=== PATIENT | male | born 1960 | race African-American/Black ===

== ENCOUNTER 2020-01-03 16:18 | Inpatient (IN) | payer MEDICARE ==
[2020-01-03] MEDS ORDERED: guaiFENesin 200 MG/10 ML UDC PO PRN (23:02)
[2020-01-03] MEDS ORDERED: Maalox 30 mL Cup PO PRN (23:02)
[2020-01-04 00:35] VITALS: BP 141/81
[2020-01-04] MEDS ORDERED: Magnesium Hydroxide (MOM) 30 mL UDC PO PRN (00:49)
[2020-01-04] MEDS ORDERED: GLUCAGON HCl 1 MG KIT IM PRN (06:55)
[2020-01-04] MEDS: INSULIN LISPRO SLIDING SCALE 100 UNITS/ML UNIT SUBQ SCH ×4 (07:30→21:45)
[2020-01-04] MEDS: Multivitamin Tab PO SCH (09:02)
--- NOTE | 2020-01-04 15:18 | Consultation ---
DATE OF CONSULTATION: 01/04/2020 REASON FOR CONSULTATION: Medical management and clearance. HISTORY OF PRESENT ILLNESS: This is a 59-year-old male with history of diabetes, chronic liver disease and schizoaffective disorder, admitted initially at [facility] secondary to change in mental status. The patient was diagnosed with ____. The patient was also treated for pneumonia, possibly secondary to aspiration. The patient was transferred for continued care and treatment. PAST MEDICAL HISTORY: As mentioned in history of present illness. PAST SURGICAL HISTORY: No surgeries in the past. ALLERGIES: No known drug allergies. MEDICATIONS: [place], risperidone, aripiprazole, tamsulosin. FAMILY HISTORY: Denies diabetes or coronary artery disease. SOCIAL HISTORY: The patient did smoke and drink in the past. The patient lives in a nursing facility. REVIEW OF SYSTEMS: This is limited secondary to ____. We will try to obtain more detailed review of systems at a later date by talking to family members. There is a conservator, Beatrice Ross, . We will also try to get information from nursing staff at [facility]. PHYSICAL EXAMINATION: VITAL SIGNS: Blood pressure 157/89, respiration 19, pulse 94, temperature 98.0. GENERAL: Elderly male, chronically ill. NECK: Supple. No mass. LUNGS: Equal breath sounds, otherwise clear to auscultation. HEART: Regular rate and rhythm without appreciable murmur. ABDOMEN: Soft, globular. EXTREMITIES: Positive ecchymosis in bilateral antecubital area. NEUROLOGIC: Limited, moving 4 extremities, unable to perform cranial nerves. Cranial nerve 1, this was offered, but patient is refused. Cranial nerve 2, this was offered, but patient is refused. Cranial nerve 3, this was offered, but patient is refused. Cranial nerve 4, this was offered, but patient is refused. Cranial nerve 5, this was offered, but patient is refused. Cranial nerve 6, this was offered, but patient is refused. Cranial nerve 7, this was offered, but patient is refused. Cranial nerve 8, this was offered, but patient is refused. Cranial nerve 9, this was offered, but patient is refused. Cranial nerve 10, this was offered, but patient is refused. Cranial nerve 11, this was offered, but patient is refused. Cranial nerve 12, this was offered, but patient is refused. Motor and sensory were equal. Gait not seen. LABORATORY DATA: Still pending. ASSESSMENT AND PLAN: ____ recent pneumonia, diabetes, chronic liver disease, schizoaffective disorder, hypertension. We will titrate the patient's antihypertensive medication. Continue on clonidine on as needed basis. If remains elevated. We will start on current antihypertensive medication. Continue on Flomax. We will compare with Psychiatry as far as alternative for lithium. We will continue to monitor the patient closely with you, Dr. Santizo. JOB# [id number]
[2020-01-04] MEDS ORDERED: Haloperidol Lactate 5 mg/mL 1mL Vial IM PRN (18:38)
[2020-01-04] MEDS ORDERED: Haloperidol Lactate 5 mg/mL 1mL Vial ONE (18:45)
[2020-01-04] MEDS ORDERED: Haloperidol Lactate 5 mg/mL 1mL Vial IM ONE (18:58)
--- NOTE | 2020-01-04 23:23 | Psychiatric Evaluation ---
DATE OF SERVICE: 01/04/2020 JUSTIFICATION FOR HOSPITALIZATION: Aggressive behaviors, agitation, psychotic symptoms. HISTORY OF PRESENT ILLNESS: A 59-year-old male conserved, coming from [facility] on a hold, agitated, aggressive, needing restraints, yelling, talking to people that are not there, loud, making nonsensical comments, disoriented, in a Anu chair now, very restless, yelling, screaming. PAST PSYCHIATRIC HISTORY: Appears to be a chronic, paranoid, schizophrenic, conserved, history of hospitalizations. FAMILY HISTORY: Unclear. SOCIAL HISTORY: Living in [facility]. MEDICATIONS: Reviewed. MEDICAL HISTORY: Please see full H and P, Dr. Benson is the doctor. MENTAL STATUS EXAMINATION: Disheveled, unkempt, poor dentition, loud, screaming, yelling, not answering really any questions, disoriented, disorganized, no SI, no HI, talking to people that are not there. Poor insight. PROVISIONAL DIAGNOSIS: Schizophrenia. ESTIMATED LENGTH OF STAY: 7-10 days. ASSESSMENT: 1. The patient requiring hospitalization, psychotic, aggressive, combative, unable to be cared for at a lower level. 2. Medications were reviewed. We will make appropriate medication adjustments, example initiate Zyprexa. CONDITIONS FOR DISCHARGE: Improved mood, improved affect, better control of his psychotic state, aggressive state. [facility]# [id number]
[2020-01-05] MEDS: INSULIN LISPRO SLIDING SCALE 100 UNITS/ML UNIT SUBQ SCH ×4 (07:04→20:45)
[2020-01-05] MEDS: Multivitamin Tab PO SCH (08:29)
[2020-01-05] MEDS ORDERED: Haloperidol Lactate 5 mg/mL 1mL Vial ONE (11:00)
--- NOTE | 2020-01-05 12:35 | Progress Notes ---
DATE: 01/05/2020 SUBJECTIVE: The patient remains unruly, agitated, bizarre in a Anu chair, yelling, screaming and talking nonsense. Patient required emergency medications dosing of Haldol last night, agitation. Psychotically driven agitation. Seems to have responded well to the Haldol dosing. Time was spent speaking with nursing staff, discussion with the patient through attempted discussions with the patients. Vitals were noted. Medications were noted and the nursing notes were reviewed. The patient remains unstable, unruly. We will switch him over to Haldol b.i.d. His hold may be expiring, we will extend to a 14-day. JOB# [id number]
--- NOTE | 2020-01-05 13:16 | Internal Medicine Prog Note ---
Internal Medicine Subjective - Subjective Patient seen and examined:: with staff, chart reviewed Patient is:: awake, verbal, interactive, agitated, confused Per staff patient has:: no adverse event, no episodes of fall, combative, tolerating meds Internal Medicine Objective - Results Recent Labs: Laboratory Last Values POC Glucose 266 MG/DL (70 - 105) H 01/05/20 11:37 - Physical Exam Vitals and I&O: Vital Signs Temp 97.3 F 01/05/20 06:06 Pulse 96 01/05/20 06:06 Resp 20 01/05/20 08:00 BP 155/82 01/05/20 06:06 Pulse Ox 100 01/05/20 06:06 Intake & Output 01/04/20 01/05/20 01/05/20 18:59 06:59 18:59 Intake Total 240 Balance 240 Intake: Oral 240 Other: # Voids 1 2 # Bowel Movements 0 0 Active Medications: Current Medications Acetaminophen (Tylenol) 650 mg PO Q4H PRN PRN Reason: Pain (Mild 1-3) Stop: 03/03/20 23:01 Al Hydrox/Mg Hydrox/Simethicone (Maalox) 30 ml PO Q6H PRN PRN Reason: Dyspepsia Stop: 03/03/20 23:01 Lipase/Protease/Amylase (Zenpep 5,000 U) 1 cap PO TIDWM [facility] Stop: 03/04/20 11:59 Last Admin: 01/05/20 12:02 Dose: 1 cap Dextrose (Glutose 40%) 18.75 gm PO PRN PRN PRN Reason: BS Below 70 if tolerate po Stop: 03/04/20 06:54 Diphenhydramine HCl (Benadryl) 25 mg PO BID [facility] Stop: 03/05/20 16:59 Glucagon (Glucagen) 1 mg IM PRN PRN PRN Reason: BS Below 70 if not tolerate po Stop: 03/04/20 06:54 Guaifenesin (Robitussin) 200 mg PO Q4HR PRN PRN Reason: Cough or Congestion Stop: 03/03/20 23:01 Haloperidol (Haldol) 5 mg PO BID [facility]; Protocol Stop: 03/05/20 16:59 Insulin Human Lispro (Humalog Insulin Sliding Scale) 0 units SUBQ [facility]; Protocol Stop: 03/04/20 07:29 Last Admin: 01/05/20 11:35 Dose: 4 units Lorazepam (Ativan) 1 mg PO Q6HR PRN; Protocol PRN Reason: Anxiety Stop: 02/03/20 00:48 Last Admin: 01/05/20 08:29 Dose: 1 mg Magnesium Hydroxide (Milk Of Magnesia) 30 ml PO HS PRN PRN Reason: Constipation Multivitamins/Vitamin C (Theragran) 1 tab PO DAILY [facility]EN Stop: 03/04/20 08:59 Last Admin: 01/05/20 08:29 Dose: 1 tab Ondansetron HCl (Zofran Odt) 4 mg PO Q6H PRN PRN Reason: Nausea / Vomiting Stop: 03/03/20 23:03 Tamsulosin HCl (Flomax) 0.4 mg PO HS WEN Stop: 03/04/20 20:59 Last Admin: 01/04/20 21:45 Dose: 0.4 mg Zolpidem Tartrate (Ambien) 5 mg PO HS PRN PRN Reason: Insomnia Stop: 03/04/20 00:48 Last Admin: 01/04/20 21:45 Dose: 5 mg General: demented, disheveled, appears older HEENT: NC/AT, PERRLA Neck: Supple, No JVD Lungs: CTAB Cardiovascular: RRR, Normal S1, Normal S2 Abdomen: soft, non-tender, positive bowel sound Extremities: excoriation Neurological: no change Internal Medicine Assmt/Plan - Assessment Assessment: ASSESSMENT AND PLAN: __h/o__ recent pneumonia, diabetes, chronic liver disease, schizoaffective disorder, hypertension. We will titrate the patient's antihypertensive medication. - Plan Plan: PLAN: . We will titrate the patient's antihypertensive medication. Continue on clonidine on as needed basis. If remains elevated. We will start on current antihypertensive medication. Continue on Flomax. We will compare with Psychiatry as far as alternative for lithium. We will continue to monitor the patient closely with you, Dr. Santizo.
[2020-01-06] MEDS: INSULIN LISPRO SLIDING SCALE 100 UNITS/ML UNIT SUBQ SCH ×4 (06:37→21:04)
[2020-01-06] MEDS: Multivitamin Tab PO SCH (08:26)
--- NOTE | 2020-01-06 15:37 | Internal Medicine Prog Note ---
Internal Medicine Subjective - Subjective Patient seen and examined:: with staff, chart reviewed Patient is:: awake, verbal, interactive, agitated, confused Per staff patient has:: no adverse event, no episodes of fall, combative, tolerating meds Internal Medicine Objective - Results Recent Labs: Laboratory Last Values POC Glucose 346 MG/DL (70 - 105) H 01/06/20 11:13 - Physical Exam Vitals and I&O: Vital Signs Temp 97.1 F 01/06/20 14:00 Pulse 83 01/06/20 14:00 Resp 20 01/06/20 14:00 BP 150/77 01/06/20 14:00 Pulse Ox 98 01/06/20 14:00 Intake & Output 01/05/20 01/06/20 01/06/20 18:59 06:59 18:59 Intake Total 800 120 120 Balance 800 120 120 Intake: Oral 800 120 120 Other: # Voids 3 2 2 # Bowel Movements 0 0 1 Active Medications: Current Medications Acetaminophen (Tylenol) 650 mg PO Q4H PRN PRN Reason: Pain (Mild 1-3) Stop: 03/03/20 23:01 Last Admin: 01/06/20 14:11 Dose: 650 mg Al Hydrox/Mg Hydrox/Simethicone (Maalox) 30 ml PO Q6H PRN PRN Reason: Dyspepsia Stop: 03/03/20 23:01 Lipase/Protease/Amylase (Zenpep 5,000 U) 1 cap PO TIDWM [facility] Stop: 03/04/20 11:59 Last Admin: 01/06/20 12:00 Dose: 1 cap Dextrose (Glutose 40%) 18.75 gm PO PRN PRN PRN Reason: BS Below 70 if tolerate po Stop: 03/04/20 06:54 Diphenhydramine HCl (Benadryl) 25 mg PO BID [facility] Stop: 03/05/20 16:59 Last Admin: 01/06/20 08:26 Dose: 25 mg Glipizide (Glucotrol) 5 mg PO BID [facility] Stop: 03/06/20 16:59 Glucagon (Glucagen) 1 mg IM PRN PRN PRN Reason: BS Below 70 if not tolerate po Stop: 03/04/20 06:54 Guaifenesin (Robitussin) 200 mg PO Q4HR PRN PRN Reason: Cough or Congestion Stop: 03/03/20 23:01 Haloperidol (Haldol) 5 mg PO BID [facility]; Protocol Stop: 03/05/20 16:59 Last Admin: 01/06/20 08:26 Dose: 5 mg Insulin Human Lispro (Humalog Insulin Sliding Scale) 0 units SUBQ [facility]; Protocol Stop: 03/04/20 07:29 Last Admin: 01/06/20 11:35 Dose: 6 units Lorazepam (Ativan) 1 mg PO Q6HR PRN; Protocol PRN Reason: Anxiety Stop: 02/03/20 00:48 Last Admin: 01/06/20 14:07 Dose: 1 mg Magnesium Hydroxide (Milk Of Magnesia) 30 ml PO HS PRN PRN Reason: Constipation Multivitamins/Vitamin C (Theragran) 1 tab PO DAILY WEN Stop: 03/04/20 08:59 Last Admin: 01/06/20 08:26 Dose: 1 tab Ondansetron HCl (Zofran Odt) 4 mg PO Q6H PRN PRN Reason: Nausea / Vomiting Stop: 03/03/20 23:03 Tamsulosin HCl (Flomax) 0.4 mg PO HS WEN Stop: 03/04/20 20:59 Last Admin: 01/05/20 20:46 Dose: 0.4 mg Zolpidem Tartrate (Ambien) 5 mg PO HS PRN PRN Reason: Insomnia Stop: 03/04/20 00:48 Last Admin: 01/05/20 22:41 Dose: 5 mg General: demented, disheveled, appears older HEENT: NC/AT, PERRLA Neck: Supple, No JVD Lungs: CTAB Cardiovascular: RRR, Normal S1, Normal S2 Abdomen: soft, non-tender, positive bowel sound Extremities: excoriation Neurological: no change Internal Medicine Assmt/Plan - Assessment Assessment: ASSESSMENT AND PLAN: __h/o__ recent pneumonia, diabetes, chronic liver disease, schizoaffective disorder, hypertension. We will titrate the patient's antihypertensive medication. - Plan Plan: PLAN: . We will titrate the patient's antihypertensive medication. Continue on clonidine on as needed basis. If remains elevated. We will start on current antihypertensive medication. Continue on Flomax. We will compare with Psychiatry as far as alternative for lithium. start on glipizide rosaura rn Nutritional Asmnt/Malnutr-PDOC - Dietary Evaluation Malnutrition Findings (Please click <Entered> for more info): Nutritional Asmnt/Malnutrition Start: 01/06/20 13: 18 Text: Status: Complete Freq: Protocol: Document 01/06/20 13:18 PB (Rec: 01/06/20 13:25 PB [email or web address]) Nutritional Asmnt/Malnutrition Patient General Information Nutritional Screening Moderate Risk Diagnosis Psychosis Pertinent Medical Hx/Surgical Hx Diabetes, chronic liver disease, and schizoaffective disorder Subjective Information Pt is a 59-year-old male admitted on 01/02 d/t psychosis. Pt is eating an estimated 100% of meals Per Meal/Nutrition Activity Record . Dietary is currently providing an estimated 1593 kcals and 95 gm Pro (x2 days), per Pt PO intake this is providing an estimated 1593 kcals and 95gm Pro to meet 94% kcal and 100+% Pro needs. Visited pt. after lunch and introduced myself. Patient seemed confused and did not speak with me. Spoke with pt. nurse Kandis concerning high glucose values, she stated, she made MD aware and will talk further today when he comes in. Anthropometrics HT: 60 WT: 147 LB (66.82 kg) BMI: 19.94 (Normal) GI/ Skin Integrity GI: WNL, Soft, Non-Tender BM: 01/05 x1 I/O: 920/Not Noted Skin: WNL, Intact Ruben: 18 Diet Order: Cardiac, CCHO 60 gm Estimated Energy Needs: ( Chronic Liver Disease, CBW) 8217-8070 kcals (25-30 kcals/ kg) 80-100g Pro (1.2-1.5 g/kg) 5599-0355 ml (25-30 ml/kg) Current Diet Order/ Nutrition Support Cardiac, CCHO 60 gm Pertinent Medications Maalox, Zenpep 5,000 U, Glutose 40% (PRN), Glucagen ( PRN), Humalog, MOM (PRN), Theragran, Zodfran Odt (PRN), Flomax Pertinent Labs 01/05: POC Glucose (past 24 hrs ) 346, 244 01/03: Albumin 3.1, Alk Phos 210, BUN 6, Glucose 266 12/30: Glucose 327, Chloride 118 , Albumin 2.7, Alk Phos 218, Total Pro 5.8 12/28: POC Glucose 407, 439 Nutritional Hx/Data Height 1.83 m Height (Calculated Centimeters) 182.9 Current Weight (lbs) 66.678 kg Weight (Calculated Kilograms) 66.7 Weight (Calculated Grams) 24834.1 [place] Body Weight 178 % [place] Body Weight 83 Body Mass Index (BMI) 19.9 Weight Status Approriate GI Symptoms GI Symptoms None Last BM 01/05 Skin Integrity/Comment: Skin: WNL, Intact Ruben: 18 Current %PO Good (75-100%) Estimated Nutritional Goals BEE in Kcals: Using Current wt Calories/Kcals/Kg 25-30 Kcals Calculated 8241-1767 Protein: Using Current wt Protein g/k.2-1.5 Protein Calculated 80-100 Fluid: ml 6667-9205 Nutritional Problem 2. Problem Problem Increased protein needs Etiology r/t liver dysfunction Signs/Symptoms: aeb history of chronic liver disease 1. Problem Problem Altered nutrition related labs Etiology r/t endocrine dysfunction Signs/Symptoms: aeb POC Glucose (last 24 hrs.) 346, 244 Malnutrition Related to Morbid Obesity Malnutrition related to morbid obesity No Intervention/Recommendation Comments 1. Continue cardiac, CCHO 60 gm diet as tolerated. 2. Continue antihyperglycemic medications for glucose control per MD order. 3. Increased protein needs to 1.2-1.5 g/kg Expected Outcomes/Goals Expected Outcomes/Goals 1. PO intake to continue to meet >75% of estimated nutritional needs. 2. Monitor PO intake, wt, nutrition related labs, and skin integrity to trend WNL. 3. F/U as moderate risk in 3-5 days, 01/10-01/12
--- NOTE | 2020-01-06 16:06 | Progress Notes ---
DATE: 01/06/2020 SUBJECTIVE: A 59-year-old male, currently in the hospital, still loud, aggressive at times, yelling and screaming, disorganized, not making any sense, ongoing psychotic symptoms, bizarre, disheveled, unkempt, staff noting he is mildly calmer, taking the Haldol. He seems to be responding somewhat to treatment, still unruly, difficult to follow his thought processes. Time was spent speaking with the patient, striking with the staff. Review of the medical records and chart. Medication evaluation for any medication side effects. PLAN: We will continue to monitor closely. Continue dosing of Haldol. Consider dose titration. JOB# [id number]
[2020-01-07] MEDS: INSULIN LISPRO SLIDING SCALE 100 UNITS/ML UNIT SUBQ SCH ×4 (07:12→21:27)
--- NOTE | 2020-01-07 07:18 | Progress Notes ---
DATE: 01/07/2020 SUBJECTIVE: The patient slept for about 5 hours, disheveled, garbled speech, paranoid, anxious, disorganized, talking to self, mumbling to self, hostile towards staff, trying to hit staff, very confused, not making much sense. Currently on dosing of Haldol 5 mg 3 times a day. He may need a higher dose in fact. Time was spent reviewing the medical records, attempting to speak with the patient, although he really is not making much sense. Nursing notes were reviewed. Vitals reviewed. Any recent labs reviewed. PLAN: We will continue to monitor. Consider continued dose titration of Haldol. JOB# [id number]
[2020-01-07] MEDS: Multivitamin Tab PO SCH (09:08)
--- NOTE | 2020-01-07 23:31 | Internal Medicine Prog Note ---
Internal Medicine Subjective - Subjective Patient seen and examined:: with staff, chart reviewed Patient is:: awake, verbal, interactive, agitated, confused Per staff patient has:: no adverse event, no episodes of fall, combative, tolerating meds Internal Medicine Objective - Results Recent Labs: Laboratory Last Values POC Glucose 120 MG/DL (70 - 105) H 01/07/20 21:16 - Physical Exam Vitals and I&O: Vital Signs Temp 97.8 F 01/07/20 20:35 Pulse 78 01/07/20 20:35 Resp 18 01/07/20 20:35 BP 136/74 01/07/20 20:35 Pulse Ox 98 01/07/20 20:35 Intake & Output 01/07/20 01/07/20 01/08/20 06:59 18:59 06:59 Intake Total 300 1200 120 Output Total 1 Balance 299 1200 120 Intake: Oral 300 1200 120 Output: Urine/Stool Mix 1 Other: # Voids 2 2 # Bowel Movements 1 1 0 Active Medications: Current Medications Acetaminophen (Tylenol) 650 mg PO Q4H PRN PRN Reason: Pain (Mild 1-3) Stop: 03/03/20 23:01 Last Admin: 01/06/20 14:11 Dose: 650 mg Al Hydrox/Mg Hydrox/Simethicone (Maalox) 30 ml PO Q6H PRN PRN Reason: Dyspepsia Stop: 03/03/20 23:01 Lipase/Protease/Amylase (Zenpep 5,000 U) 1 cap PO TIDWM [facility] Stop: 03/04/20 11:59 Last Admin: 01/07/20 16:54 Dose: 1 cap Dextrose (Glutose 40%) 18.75 gm PO PRN PRN PRN Reason: BS Below 70 if tolerate po Stop: 03/04/20 06:54 Diphenhydramine HCl (Benadryl) 25 mg PO BID [facility] Stop: 03/05/20 16:59 Last Admin: 01/07/20 16:54 Dose: 25 mg Glucagon (Glucagen) 1 mg IM PRN PRN PRN Reason: BS Below 70 if not tolerate po Stop: 03/04/20 06:54 Guaifenesin (Robitussin) 200 mg PO Q4HR PRN PRN Reason: Cough or Congestion Stop: 03/03/20 23:01 Haloperidol (Haldol) 5 mg PO BID [facility]; Protocol Stop: 03/05/20 16:59 Last Admin: 01/07/20 16:54 Dose: 5 mg Insulin Human Lispro (Humalog Insulin Sliding Scale) 0 units SUBQ ACHS [facility]; Protocol Stop: 03/04/20 07:29 Last Admin: 01/07/20 21:27 Dose: 1 units Lorazepam (Ativan) 1 mg PO Q6HR PRN; Protocol PRN Reason: Anxiety Stop: 02/03/20 00:48 Last Admin: 01/07/20 16:54 Dose: 1 mg Magnesium Hydroxide (Milk Of Magnesia) 30 ml PO HS PRN PRN Reason: Constipation Multivitamins/Vitamin C (Theragran) 1 tab PO DAILY [facility] Stop: 03/04/20 08:59 Last Admin: 01/07/20 09:08 Dose: 1 tab Ondansetron HCl (Zofran Odt) 4 mg PO Q6H PRN PRN Reason: Nausea / Vomiting Stop: 03/03/20 23:03 Tamsulosin HCl (Flomax) 0.4 mg PO HS WEN Stop: 03/04/20 20:59 Last Admin: 01/07/20 21:20 Dose: 0.4 mg Zolpidem Tartrate (Ambien) 5 mg PO HS PRN PRN Reason: Insomnia Stop: 03/04/20 00:48 Last Admin: 01/07/20 21:21 Dose: 5 mg General: demented, disheveled, appears older HEENT: NC/AT, PERRLA Neck: Supple, No JVD Lungs: CTAB Cardiovascular: RRR, Normal S1, Normal S2 Abdomen: soft, non-tender, positive bowel sound Extremities: excoriation Neurological: no change Internal Medicine Assmt/Plan - Assessment Assessment: ASSESSMENT AND PLAN: __h/o__ recent pneumonia, diabetes, chronic liver disease, schizoaffective disorder, hypertension. We will titrate the patient's antihypertensive medication. - Plan Plan: PLAN: . We will titrate the patient's antihypertensive medication. Continue on clonidine on as needed basis. If remains elevated. We will start on current antihypertensive medication. Continue on Flomax. We will compare with Psychiatry as far as alternative for lithium. start on glipizide rosaura rn Nutritional Asmnt/Malnutr-PDOC - Dietary Evaluation Malnutrition Findings (Please click <Entered> for more info): Nutritional Asmnt/Malnutrition Start: 01/06/20 13: 18 Text: Status: Complete Freq: Protocol: Document 01/06/20 13:18 PB (Rec: 01/06/20 13:25 PB [email or web address]) Nutritional Asmnt/Malnutrition Patient General Information Nutritional Screening Moderate Risk Diagnosis Psychosis Pertinent Medical Hx/Surgical Hx Diabetes, chronic liver disease, and schizoaffective disorder Subjective Information Pt is a 59-year-old male admitted on 01/02 d/t psychosis. Pt is eating an estimated 100% of meals Per Meal/Nutrition Activity Record . Dietary is currently providing an estimated 1593 kcals and 95 gm Pro (x2 days), per Pt PO intake this is providing an estimated 1593 kcals and 95gm Pro to meet 94% kcal and 100+% Pro needs. Visited pt. after lunch and introduced myself. Patient seemed confused and did not speak with me. Spoke with pt. nurse Kandis concerning high glucose values, she stated, she made MD aware and will talk further today when he comes in. Anthropometrics HT: 60 WT: 147 LB (66.82 kg) BMI: 19.94 (Normal) GI/ Skin Integrity GI: WNL, Soft, Non-Tender BM: 01/05 x1 I/O: 920/Not Noted Skin: WNL, Intact Ruben: 18 Diet Order: Cardiac, CCHO 60 gm Estimated Energy Needs: ( Chronic Liver Disease, CBW) 5992-0406 kcals (25-30 kcals/ kg) 80-100g Pro (1.2-1.5 g/kg) 3572-2316 ml (25-30 ml/kg) Current Diet Order/ Nutrition Support Cardiac, CCHO 60 gm Pertinent Medications Maalox, Zenpep 5,000 U, Glutose 40% (PRN), Glucagen ( PRN), Humalog, MOM (PRN), Theragran, Zodfran Odt (PRN), Flomax Pertinent Labs 01/05: POC Glucose (past 24 hrs ) 346, 244 01/03: Albumin 3.1, Alk Phos 210, BUN 6, Glucose 266 12/30: Glucose 327, Chloride 118 , Albumin 2.7, Alk Phos 218, Total Pro 5.8 12/28: POC Glucose 407, 439 Nutritional Hx/Data Height 1.83 m Height (Calculated Centimeters) 182.9 Current Weight (lbs) 66.678 kg Weight (Calculated Kilograms) 66.7 Weight (Calculated Grams) 52852.1 [place] Body Weight 178 % [place] Body Weight 83 Body Mass Index (BMI) 19.9 Weight Status Approriate GI Symptoms GI Symptoms None Last BM 01/05 Skin Integrity/Comment: Skin: WNL, Intact Ruben: 18 Current %PO Good (75-100%) Estimated Nutritional Goals BEE in Kcals: Using Current wt Calories/Kcals/Kg 25-30 Kcals Calculated 2459-9727 Protein: Using Current wt Protein g/k.2-1.5 Protein Calculated 80-100 Fluid: ml 5116-8062 Nutritional Problem 2. Problem Problem Increased protein needs Etiology r/t liver dysfunction Signs/Symptoms: aeb history of chronic liver disease 1. Problem Problem Altered nutrition related labs Etiology r/t endocrine dysfunction Signs/Symptoms: aeb POC Glucose (last 24 hrs.) 346, 244 Malnutrition Related to Morbid Obesity Malnutrition related to morbid obesity No Intervention/Recommendation Comments 1. Continue cardiac, CCHO 60 gm diet as tolerated. 2. Continue antihyperglycemic medications for glucose control per MD order. 3. Increased protein needs to 1.2-1.5 g/kg Expected Outcomes/Goals Expected Outcomes/Goals 1. PO intake to continue to meet >75% of estimated nutritional needs. 2. Monitor PO intake, wt, nutrition related labs, and skin integrity to trend WNL. 3. F/U as moderate risk in 3-5 days, 01/10-01/12
[2020-01-08] MEDS: INSULIN LISPRO SLIDING SCALE 100 UNITS/ML UNIT SUBQ SCH ×4 (06:59→20:44)
[2020-01-08] MEDS: Multivitamin Tab PO SCH (08:23)
--- NOTE | 2020-01-08 12:55 | Internal Medicine Prog Note ---
Internal Medicine Subjective - Subjective Patient seen and examined:: with staff, chart reviewed Patient is:: awake, verbal, interactive, agitated, confused Per staff patient has:: no adverse event, no episodes of fall, combative, tolerating meds Internal Medicine Objective - Results Recent Labs: Laboratory Last Values POC Glucose 176 MG/DL (70 - 105) H 01/08/20 06:39 - Physical Exam Vitals and I&O: Vital Signs Temp 98.6 F 01/08/20 06:16 Pulse 98 01/08/20 06:16 Resp 19 01/08/20 07:59 BP 142/86 01/08/20 06:16 Pulse Ox 98 01/08/20 06:16 Intake & Output 01/07/20 01/08/20 01/08/20 18:59 06:59 18:59 Intake Total 1200 240 Balance 1200 240 Intake: Oral 1200 240 Other: # Voids 2 # Bowel Movements 1 0 Active Medications: Current Medications Acetaminophen (Tylenol) 650 mg PO Q4H PRN PRN Reason: Pain (Mild 1-3) Stop: 03/03/20 23:01 Last Admin: 01/06/20 14:11 Dose: 650 mg Al Hydrox/Mg Hydrox/Simethicone (Maalox) 30 ml PO Q6H PRN PRN Reason: Dyspepsia Stop: 03/03/20 23:01 Lipase/Protease/Amylase (Zenpep 5,000 U) 1 cap PO TIDWM [facility] Stop: 03/04/20 11:59 Last Admin: 01/08/20 12:03 Dose: 1 cap Dextrose (Glutose 40%) 18.75 gm PO PRN PRN PRN Reason: BS Below 70 if tolerate po Stop: 03/04/20 06:54 Diphenhydramine HCl (Benadryl) 25 mg PO BID [facility] Stop: 03/05/20 16:59 Last Admin: 01/08/20 08:24 Dose: 25 mg Glipizide (Glucotrol) 5 mg PO BIDAC [facility] Stop: 03/06/20 16:29 Last Admin: 01/08/20 06:58 Dose: 5 mg Glucagon (Glucagen) 1 mg IM PRN PRN PRN Reason: BS Below 70 if not tolerate po Stop: 03/04/20 06:54 Guaifenesin (Robitussin) 200 mg PO Q4HR PRN PRN Reason: Cough or Congestion Stop: 03/03/20 23:01 Haloperidol (Haldol) 5 mg PO BID [facility]; Protocol Stop: 03/05/20 16:59 Last Admin: 01/08/20 08:23 Dose: 5 mg Insulin Human Lispro (Humalog Insulin Sliding Scale) 0 units SUBQ ACHS WEN; Protocol Stop: 03/04/20 07:29 Last Admin: 01/08/20 11:40 Dose: 6 units Lorazepam (Ativan) 1 mg PO Q6HR PRN; Protocol PRN Reason: Anxiety Stop: 02/03/20 00:48 Last Admin: 01/08/20 08:24 Dose: 1 mg Magnesium Hydroxide (Milk Of Magnesia) 30 ml PO HS PRN PRN Reason: Constipation Multivitamins/Vitamin C (Theragran) 1 tab PO DAILY [facility] Stop: 03/04/20 08:59 Last Admin: 01/08/20 08:23 Dose: 1 tab Ondansetron HCl (Zofran Odt) 4 mg PO Q6H PRN PRN Reason: Nausea / Vomiting Stop: 03/03/20 23:03 Tamsulosin HCl (Flomax) 0.4 mg PO HS [facility] Stop: 03/04/20 20:59 Last Admin: 01/07/20 21:20 Dose: 0.4 mg Zolpidem Tartrate (Ambien) 5 mg PO HS PRN PRN Reason: Insomnia Stop: 03/04/20 00:48 Last Admin: 01/07/20 21:21 Dose: 5 mg General: demented, disheveled, appears older HEENT: NC/AT, PERRLA Neck: Supple, No JVD Lungs: CTAB Cardiovascular: RRR, Normal S1, Normal S2 Abdomen: soft, non-tender, positive bowel sound Extremities: excoriation Neurological: no change Internal Medicine Assmt/Plan - Assessment Assessment: ASSESSMENT AND PLAN: __h/o__ recent pneumonia, diabetes, chronic liver disease, schizoaffective disorder, hypertension. We will titrate the patient's antihypertensive medication. - Plan Plan: PLAN: . We will titrate the patient's antihypertensive medication. Continue on clonidine on as needed basis. If remains elevated. We will start on current antihypertensive medication. Continue on Flomax. We will compare with Psychiatry as far as alternative for lithium. start on glipizide rosaura rn Nutritional Asmnt/Malnutr-PDOC - Dietary Evaluation Malnutrition Findings (Please click <Entered> for more info): Nutritional Asmnt/Malnutrition Start: 01/06/20 13: 18 Text: Status: Complete Freq: Protocol: Document 01/06/20 13:18 PB (Rec: 01/06/20 13:25 PB [email or web address]) Nutritional Asmnt/Malnutrition Patient General Information Nutritional Screening Moderate Risk Diagnosis Psychosis Pertinent Medical Hx/Surgical Hx Diabetes, chronic liver disease, and schizoaffective disorder Subjective Information Pt is a 59-year-old male admitted on 01/02 d/t psychosis. Pt is eating an estimated 100% of meals Per Meal/Nutrition Activity Record . Dietary is currently providing an estimated 1593 kcals and 95 gm Pro (x2 days), per Pt PO intake this is providing an estimated 1593 kcals and 95gm Pro to meet 94% kcal and 100+% Pro needs. Visited pt. after lunch and introduced myself. Patient seemed confused and did not speak with me. Spoke with pt. nurse Kandis concerning high glucose values, she stated, she made MD aware and will talk further today when he comes in. Anthropometrics HT: 60 WT: 147 LB (66.82 kg) BMI: 19.94 (Normal) GI/ Skin Integrity GI: WNL, Soft, Non-Tender BM: 01/05 x1 I/O: 920/Not Noted Skin: WNL, Intact Ruben: 18 Diet Order: Cardiac, CCHO 60 gm Estimated Energy Needs: ( Chronic Liver Disease, CBW) 5986-2833 kcals (25-30 kcals/ kg) 80-100g Pro (1.2-1.5 g/kg) 1673-0756 ml (25-30 ml/kg) Current Diet Order/ Nutrition Support Cardiac, CCHO 60 gm Pertinent Medications Maalox, Zenpep 5,000 U, Glutose 40% (PRN), Glucagen ( PRN), Humalog, MOM (PRN), Theragran, Zodfran Odt (PRN), Flomax Pertinent Labs 01/05: POC Glucose (past 24 hrs ) 346, 244 01/03: Albumin 3.1, Alk Phos 210, BUN 6, Glucose 266 12/30: Glucose 327, Chloride 118 , Albumin 2.7, Alk Phos 218, Total Pro 5.8 12/28: POC Glucose 407, 439 Nutritional Hx/Data Height 1.83 m Height (Calculated Centimeters) 182.9 Current Weight (lbs) 66.678 kg Weight (Calculated Kilograms) 66.7 Weight (Calculated Grams) 13110.1 [place] Body Weight 178 % [place] Body Weight 83 Body Mass Index (BMI) 19.9 Weight Status Approriate GI Symptoms GI Symptoms None Last BM 01/05 Skin Integrity/Comment: Skin: WNL, Intact Ruben: 18 Current %PO Good (75-100%) Estimated Nutritional Goals BEE in Kcals: Using Current wt Calories/Kcals/Kg 25-30 Kcals Calculated 4812-4881 Protein: Using Current wt Protein g/k.2-1.5 Protein Calculated 80-100 Fluid: ml 0594-1780 Nutritional Problem 2. Problem Problem Increased protein needs Etiology r/t liver dysfunction Signs/Symptoms: aeb history of chronic liver disease 1. Problem Problem Altered nutrition related labs Etiology r/t endocrine dysfunction Signs/Symptoms: aeb POC Glucose (last 24 hrs.) 346, 244 Malnutrition Related to Morbid Obesity Malnutrition related to morbid obesity No Intervention/Recommendation Comments 1. Continue cardiac, CCHO 60 gm diet as tolerated. 2. Continue antihyperglycemic medications for glucose control per MD order. 3. Increased protein needs to 1.2-1.5 g/kg Expected Outcomes/Goals Expected Outcomes/Goals 1. PO intake to continue to meet >75% of estimated nutritional needs. 2. Monitor PO intake, wt, nutrition related labs, and skin integrity to trend WNL. 3. F/U as moderate risk in 3-5 days, 01/10-01/12
--- NOTE | 2020-01-08 23:20 | Progress Notes ---
DATE: 01/08/2020 PHYSICIAN: Danette Padgett DO SUBJECTIVE: The patient was interviewed. Case was discussed with staff. Chart and records were reviewed. Per the staff, the patient has been withdrawn, confused, preoccupied and easily irritable and agitated on the unit. He also has been responding to internal stimuli. The patient was interviewed this morning at bedside. His speech is largely incoherent. He is disorganized in his thinking. He is loud. He repeatedly states "board and care", but unable to really provide much more history than this. He also appears to be internally preoccupied, isolating himself to his room and paranoid of his environment. MENTAL STATUS EXAMINATION: The patient is an elderly male sitting at the edge of his bed. His speech is loud and incoherent. His mood and affect appear to be somewhat irritable at this time. His thought process is disorganized. Unable to assess for suicidal or homicidal thoughts but the patient does appear to be internally preoccupied and paranoid. He is alert and oriented x 1. Insight, judgment and impulse control appear to be poor. ASSESSMENT AND PLAN: We will continue the patient on acute hospitalization. We will continue medications prescribed. We will encourage the patient to verbalize his needs and participate in group and milieu therapy. JOB# [id number]
[2020-01-09] MEDS: INSULIN LISPRO SLIDING SCALE 100 UNITS/ML UNIT SUBQ SCH ×4 (06:42→20:36)
[2020-01-09] MEDS: Multivitamin Tab PO SCH (08:33)
--- NOTE | 2020-01-09 12:36 | Progress Notes ---
DATE: 01/09/2020 SUBJECTIVE: A 59-year-old male, still agitated, confused, irritated, unpredictable, paranoid, responding to internal stimuli. The patient is still disorganized, bizarre, paranoid of others, yelling, talking nonsense. Currently on dosing of Haldol, seems to be somewhat calmer, time was spent speaking with the patient. He remains unruly, still unstable. Time was spent reviewing consultation note from the weekend. Vitals were also reviewed. Any recent labs were reviewed. The patient is still symptomatic, acute, not safe for a lower level of care. History of likely schizophrenia, diabetes as well. JOB# [id number]
--- NOTE | 2020-01-09 13:36 | Internal Medicine Prog Note ---
Internal Medicine Subjective - Subjective Patient seen and examined:: with staff, chart reviewed Patient is:: awake, verbal, interactive, agitated, confused Per staff patient has:: no adverse event, no episodes of fall, combative, tolerating meds Internal Medicine Objective - Results Recent Labs: Laboratory Last Values POC Glucose 294 MG/DL (70 - 105) H 01/09/20 11:37 - Physical Exam Vitals and I&O: Vital Signs Temp 97.6 F 01/09/20 06:28 Pulse 94 01/09/20 06:28 Resp 20 01/09/20 06:28 BP 144/82 01/09/20 06:28 Pulse Ox 97 01/09/20 06:28 Intake & Output 01/08/20 01/09/20 01/09/20 18:59 06:59 18:59 Intake Total 1000 600 Balance 1000 600 Intake: Oral 1000 600 Other: # Voids 2 # Bowel Movements 1 0 Active Medications: Current Medications Acetaminophen (Tylenol) 650 mg PO Q4H PRN PRN Reason: Pain (Mild 1-3) Stop: 03/03/20 23:01 Last Admin: 01/06/20 14:11 Dose: 650 mg Al Hydrox/Mg Hydrox/Simethicone (Maalox) 30 ml PO Q6H PRN PRN Reason: Dyspepsia Stop: 03/03/20 23:01 Lipase/Protease/Amylase (Zenpep 5,000 U) 1 cap PO TIDWM [facility] Stop: 03/04/20 11:59 Last Admin: 01/09/20 12:00 Dose: 1 cap Dextrose (Glutose 40%) 18.75 gm PO PRN PRN PRN Reason: BS Below 70 if tolerate po Stop: 03/04/20 06:54 Diphenhydramine HCl (Benadryl) 25 mg PO BID [facility] Stop: 03/05/20 16:59 Last Admin: 01/09/20 08:33 Dose: 25 mg Glipizide (Glucotrol) 5 mg PO BIDAC [facility] Stop: 03/06/20 16:29 Last Admin: 01/09/20 06:41 Dose: 5 mg Glucagon (Glucagen) 1 mg IM PRN PRN PRN Reason: BS Below 70 if not tolerate po Stop: 03/04/20 06:54 Guaifenesin (Robitussin) 200 mg PO Q4HR PRN PRN Reason: Cough or Congestion Stop: 03/03/20 23:01 Haloperidol (Haldol) 5 mg PO BID [facility]; Protocol Stop: 03/05/20 16:59 Last Admin: 01/09/20 08:33 Dose: 5 mg Insulin Human Lispro (Humalog Insulin Sliding Scale) 0 units SUBQ ACHS [facility]; Protocol Stop: 03/04/20 07:29 Last Admin: 01/09/20 11:35 Dose: 4 units Lorazepam (Ativan) 1 mg PO Q6HR PRN; Protocol PRN Reason: Anxiety Stop: 02/03/20 00:48 Last Admin: 01/08/20 08:24 Dose: 1 mg Magnesium Hydroxide (Milk Of Magnesia) 30 ml PO HS PRN PRN Reason: Constipation Multivitamins/Vitamin C (Theragran) 1 tab PO DAILY [facility] Stop: 03/04/20 08:59 Last Admin: 01/09/20 08:33 Dose: 1 tab Ondansetron HCl (Zofran Odt) 4 mg PO Q6H PRN PRN Reason: Nausea / Vomiting Stop: 03/03/20 23:03 Tamsulosin HCl (Flomax) 0.4 mg PO HS [facility] Stop: 03/04/20 20:59 Last Admin: 01/08/20 20:43 Dose: 0.4 mg Zolpidem Tartrate (Ambien) 5 mg PO HS PRN PRN Reason: Insomnia Stop: 03/04/20 00:48 Last Admin: 01/08/20 20:44 Dose: 5 mg General: demented, disheveled, appears older HEENT: NC/AT, PERRLA Neck: Supple, No JVD Lungs: CTAB Cardiovascular: RRR, Normal S1, Normal S2 Abdomen: soft, non-tender, positive bowel sound Extremities: excoriation Neurological: no change Internal Medicine Assmt/Plan - Assessment Assessment: ASSESSMENT AND PLAN: __h/o__ recent pneumonia, diabetes, chronic liver disease, schizoaffective disorder, hypertension. We will titrate the patient's antihypertensive medication. - Plan Plan: PLAN: . We will titrate the patient's antihypertensive medication. Continue on clonidine on as needed basis. If remains elevated. We will start on current antihypertensive medication. Continue on Flomax. We will compare with Psychiatry as far as alternative for lithium. start on glipizide rosaura rn Nutritional Asmnt/Malnutr-PDOC - Dietary Evaluation Malnutrition Findings (Please click <Entered> for more info): Nutritional Asmnt/Malnutrition Start: 01/06/20 13: 18 Text: Status: Complete Freq: Protocol: Document 01/06/20 13:18 PB (Rec: 01/06/20 13:25 PB [email or web address]) Nutritional Asmnt/Malnutrition Patient General Information Nutritional Screening Moderate Risk Diagnosis Psychosis Pertinent Medical Hx/Surgical Hx Diabetes, chronic liver disease, and schizoaffective disorder Subjective Information Pt is a 59-year-old male admitted on 01/02 d/t psychosis. Pt is eating an estimated 100% of meals Per Meal/Nutrition Activity Record . Dietary is currently providing an estimated 1593 kcals and 95 gm Pro (x2 days), per Pt PO intake this is providing an estimated 1593 kcals and 95gm Pro to meet 94% kcal and 100+% Pro needs. Visited pt. after lunch and introduced myself. Patient seemed confused and did not speak with me. Spoke with pt. nurse Kandis concerning high glucose values, she stated, she made MD aware and will talk further today when he comes in. Anthropometrics HT: 60 WT: 147 LB (66.82 kg) BMI: 19.94 (Normal) GI/ Skin Integrity GI: WNL, Soft, Non-Tender BM: 01/05 x1 I/O: 920/Not Noted Skin: WNL, Intact Ruben: 18 Diet Order: Cardiac, CCHO 60 gm Estimated Energy Needs: ( Chronic Liver Disease, CBW) 6031-5876 kcals (25-30 kcals/ kg) 80-100g Pro (1.2-1.5 g/kg) 7904-9351 ml (25-30 ml/kg) Current Diet Order/ Nutrition Support Cardiac, CCHO 60 gm Pertinent Medications Maalox, Zenpep 5,000 U, Glutose 40% (PRN), Glucagen ( PRN), Humalog, MOM (PRN), Theragran, Zodfran Odt (PRN), Flomax Pertinent Labs 01/05: POC Glucose (past 24 hrs ) 346, 244 01/03: Albumin 3.1, Alk Phos 210, BUN 6, Glucose 266 12/30: Glucose 327, Chloride 118 , Albumin 2.7, Alk Phos 218, Total Pro 5.8 12/28: POC Glucose 407, 439 Nutritional Hx/Data Height 1.83 m Height (Calculated Centimeters) 182.9 Current Weight (lbs) 66.678 kg Weight (Calculated Kilograms) 66.7 Weight (Calculated Grams) 56516.1 [place] Body Weight 178 % [place] Body Weight 83 Body Mass Index (BMI) 19.9 Weight Status Approriate GI Symptoms GI Symptoms None Last BM 01/05 Skin Integrity/Comment: Skin: WNL, Intact Ruben: 18 Current %PO Good (75-100%) Estimated Nutritional Goals BEE in Kcals: Using Current wt Calories/Kcals/Kg 25-30 Kcals Calculated 4629-3315 Protein: Using Current wt Protein g/k.2-1.5 Protein Calculated 80-100 Fluid: ml 8785-3319 Nutritional Problem 2. Problem Problem Increased protein needs Etiology r/t liver dysfunction Signs/Symptoms: aeb history of chronic liver disease 1. Problem Problem Altered nutrition related labs Etiology r/t endocrine dysfunction Signs/Symptoms: aeb POC Glucose (last 24 hrs.) 346, 244 Malnutrition Related to Morbid Obesity Malnutrition related to morbid obesity No Intervention/Recommendation Comments 1. Continue cardiac, CCHO 60 gm diet as tolerated. 2. Continue antihyperglycemic medications for glucose control per MD order. 3. Increased protein needs to 1.2-1.5 g/kg Expected Outcomes/Goals Expected Outcomes/Goals 1. PO intake to continue to meet >75% of estimated nutritional needs. 2. Monitor PO intake, wt, nutrition related labs, and skin integrity to trend WNL. 3. F/U as moderate risk in 3-5 days, 01/10-01/12
[2020-01-10] MEDS: INSULIN LISPRO SLIDING SCALE 100 UNITS/ML UNIT SUBQ SCH ×4 (06:36→20:49)
[2020-01-10] MEDS: Multivitamin Tab PO SCH (08:40)
[2020-01-10] MEDS ORDERED: GLUCAGON HCl 1 MG KIT IM PRN (12:39)
--- NOTE | 2020-01-10 12:40 | Internal Medicine Prog Note ---
Internal Medicine Subjective - Subjective Patient seen and examined:: with staff, chart reviewed Patient is:: awake, verbal, interactive, agitated, confused Per staff patient has:: no adverse event, no episodes of fall, combative, tolerating meds Internal Medicine Objective - Results Recent Labs: Laboratory Last Values POC Glucose 307 MG/DL (70 - 105) H 01/10/20 06:17 - Physical Exam Vitals and I&O: Vital Signs Temp 98.1 F 01/10/20 06:21 Pulse 93 01/10/20 06:21 Resp 19 01/10/20 06:21 BP 135/79 01/10/20 06:21 Pulse Ox 100 01/10/20 06:21 Intake & Output 01/09/20 01/10/20 01/10/20 18:59 06:59 18:59 Intake Total 1800 120 Output Total 0 Balance 1800 120 Intake: Oral 1800 120 Output: Urine/Stool Mix 0 Other: # Voids 5 3 # Bowel Movements 1 0 Active Medications: Current Medications Acetaminophen (Tylenol) 650 mg PO Q4H PRN PRN Reason: Pain (Mild 1-3) Stop: 03/03/20 23:01 Last Admin: 01/06/20 14:11 Dose: 650 mg Al Hydrox/Mg Hydrox/Simethicone (Maalox) 30 ml PO Q6H PRN PRN Reason: Dyspepsia Stop: 03/03/20 23:01 Lipase/Protease/Amylase (Zenpep 5,000 U) 1 cap PO TIDWM [facility] Stop: 03/04/20 11:59 Last Admin: 01/10/20 08:00 Dose: 1 cap Dextrose (Glutose 40%) 18.75 gm PO PRN PRN PRN Reason: BS Below 70 if tolerate po Stop: 03/04/20 06:54 Dextrose (Glutose 40%) 18.75 gm PO PRN PRN PRN Reason: Blood Glucose less than 70 Stop: 03/10/20 12:38 Diphenhydramine HCl (Benadryl) 25 mg PO BID [facility] Stop: 03/05/20 16:59 Last Admin: 01/10/20 08:39 Dose: 25 mg Glipizide (Glucotrol) 10 mg PO BIDAC [facility] Stop: 03/10/20 16:29 Glucagon (Glucagen) 1 mg IM PRN PRN PRN Reason: BS Below 70 if not tolerate po Stop: 03/04/20 06:54 Glucagon (Glucagen) 1 mg IM PRN PRN PRN Reason: Blood Glucose less than 70 Stop: 03/10/20 12:38 Guaifenesin (Robitussin) 200 mg PO Q4HR PRN PRN Reason: Cough or Congestion Stop: 03/03/20 23:01 Haloperidol (Haldol) 5 mg PO BID [facility]; Protocol Stop: 03/05/20 16:59 Last Admin: 01/10/20 08:39 Dose: 5 mg Insulin Human Lispro (Humalog Insulin Sliding Scale) 0 units SUBQ ACHS [facility]; Protocol Stop: 03/10/20 16:29 Lorazepam (Ativan) 1 mg PO Q6HR PRN; Protocol PRN Reason: Anxiety Stop: 02/03/20 00:48 Last Admin: 01/10/20 08:39 Dose: 1 mg Magnesium Hydroxide (Milk Of Magnesia) 30 ml PO HS PRN PRN Reason: Constipation Multivitamins/Vitamin C (Theragran) 1 tab PO DAILY [facility] Stop: 03/04/20 08:59 Last Admin: 01/10/20 08:40 Dose: 1 tab Ondansetron HCl (Zofran Odt) 4 mg PO Q6H PRN PRN Reason: Nausea / Vomiting Stop: 03/03/20 23:03 Tamsulosin HCl (Flomax) 0.4 mg PO HS [facility] Stop: 03/04/20 20:59 Last Admin: 01/09/20 20:36 Dose: 0.4 mg Zolpidem Tartrate (Ambien) 5 mg PO HS PRN PRN Reason: Insomnia Stop: 03/04/20 00:48 Last Admin: 01/08/20 20:44 Dose: 5 mg General: demented, disheveled, appears older HEENT: NC/AT, PERRLA Neck: Supple, No JVD Lungs: CTAB Cardiovascular: RRR, Normal S1, Normal S2 Abdomen: soft, non-tender, positive bowel sound Extremities: excoriation Neurological: no change Internal Medicine Assmt/Plan - Assessment Assessment: ASSESSMENT AND PLAN: __h/o__ recent pneumonia, diabetes, chronic liver disease, schizoaffective disorder, hypertension. We will titrate the patient's antihypertensive medication. - Plan Plan: PLAN: . We will titrate the patient's antihypertensive medication. Continue on clonidine on as needed basis. If remains elevated. We will start on current antihypertensive medication. Continue on Flomax. We will compare with Psychiatry as far as alternative for lithium. start on glipizide rosaura rn Nutritional Asmnt/Malnutr-PDOC - Dietary Evaluation Malnutrition Findings (Please click <Entered> for more info): Nutritional Asmnt/Malnutrition Start: 01/06/20 13: 18 Text: Status: Complete Freq: Protocol: Document 01/06/20 13:18 [email or web address] (Rec: 01/06/20 13:25 [email or web address]) Nutritional Asmnt/Malnutrition Patient General Information Nutritional Screening Moderate Risk Diagnosis Psychosis Pertinent Medical Hx/Surgical Hx Diabetes, chronic liver disease, and schizoaffective disorder Subjective Information Pt is a 59-year-old male admitted on 01/02 d/t psychosis. Pt is eating an estimated 100% of meals Per Meal/Nutrition Activity Record . Dietary is currently providing an estimated 1593 kcals and 95 gm Pro (x2 days), per Pt PO intake this is providing an estimated 1593 kcals and 95gm Pro to meet 94% kcal and 100+% Pro needs. Visited pt. after lunch and introduced myself. Patient seemed confused and did not speak with me. Spoke with pt. nurse Kandis concerning high glucose values, she stated, she made MD aware and will talk further today when he comes in. Anthropometrics HT: 60 WT: 147 LB (66.82 kg) BMI: 19.94 (Normal) GI/ Skin Integrity GI: WNL, Soft, Non-Tender BM: 01/05 x1 I/O: 920/Not Noted Skin: WNL, Intact Ruben: 18 Diet Order: Cardiac, CCHO 60 gm Estimated Energy Needs: ( Chronic Liver Disease, CBW) 1583-1010 kcals (25-30 kcals/ kg) 80-100g Pro (1.2-1.5 g/kg) 0196-4307 ml (25-30 ml/kg) Current Diet Order/ Nutrition Support Cardiac, CCHO 60 gm Pertinent Medications Maalox, Zenpep 5,000 U, Glutose 40% (PRN), Glucagen ( PRN), Humalog, MOM (PRN), Theragran, Zodfran Odt (PRN), Flomax Pertinent Labs 3/13: POC Glucose (past 24 hrs ) 346, 244 01/03: Albumin 3.1, Alk Phos 210, BUN 6, Glucose 266 12/30: Glucose 327, Chloride 118 , Albumin 2.7, Alk Phos 218, Total Pro 5.8 12/28: POC Glucose 407, 439 Nutritional Hx/Data Height 1.83 m Height (Calculated Centimeters) 182.9 Current Weight (lbs) 66.678 kg Weight (Calculated Kilograms) 66.7 Weight (Calculated Grams) 34921.1 [place] Body Weight 178 % [place] Body Weight 83 Body Mass Index (BMI) 19.9 Weight Status Approriate GI Symptoms GI Symptoms None Last BM 01/05 Skin Integrity/Comment: Skin: WNL, Intact Ruben: 18 Current %PO Good (75-100%) Estimated Nutritional Goals BEE in Kcals: Using Current wt Calories/Kcals/Kg 25-30 Kcals Calculated 3261-1117 Protein: Using Current wt Protein g/k.2-1.5 Protein Calculated 80-100 Fluid: ml 5621-2139 Nutritional Problem 2. Problem Problem Increased protein needs Etiology r/t liver dysfunction Signs/Symptoms: aeb history of chronic liver disease 1. Problem Problem Altered nutrition related labs Etiology r/t endocrine dysfunction Signs/Symptoms: aeb POC Glucose (last 24 hrs.) 346, 244 Malnutrition Related to Morbid Obesity Malnutrition related to morbid obesity No Intervention/Recommendation Comments 1. Continue cardiac, CCHO 60 gm diet as tolerated. 2. Continue antihyperglycemic medications for glucose control per MD order. 3. Increased protein needs to 1.2-1.5 g/kg Expected Outcomes/Goals Expected Outcomes/Goals 1. PO intake to continue to meet >75% of estimated nutritional needs. 2. Monitor PO intake, wt, nutrition related labs, and skin integrity to trend WNL. 3. F/U as moderate risk in 3-5 days, 01/10-01/12
--- NOTE | 2020-01-10 13:36 | Progress Notes ---
DATE: 01/10/2020 SUBJECTIVE: The patient slept throughout the night. He is more interactive, I am actually able to have some sort of conversation with him. He is happy with the Haldol, "I am walking around, alluding to more energy." Still talking to self, mumbling to self. Still with some bizarre behaviors, but more redirectable, less agitated, more psychiatrically stabilized and certainly responding to treatment, happy with dosing of Haldol. We will also consider Haldol Decanoate. Time was spent speaking with the patient, also nursing notes were also reviewed. We will initiate Haldol Decanoate. Medications were reviewed. Vitals reviewed. Labs were reviewed. We will continue inpatient monitoring, ongoing and residual psychotic symptoms. JOB# [id number]
[2020-01-11] MEDS: INSULIN LISPRO SLIDING SCALE 100 UNITS/ML UNIT SUBQ SCH ×4 (06:46→21:16)
[2020-01-11] MEDS: Multivitamin Tab PO SCH (08:34)
--- NOTE | 2020-01-11 13:22 | Internal Medicine Prog Note ---
Internal Medicine Subjective - Subjective Patient seen and examined:: with staff, chart reviewed Patient is:: awake, verbal, interactive, agitated, confused Per staff patient has:: no adverse event, no episodes of fall, combative, tolerating meds Internal Medicine Objective - Results Recent Labs: Laboratory Last Values POC Glucose 348 MG/DL (70 - 105) H 01/11/20 11:35 - Physical Exam Vitals and I&O: Vital Signs Temp 98.3 F 01/11/20 05:42 Pulse 60 01/11/20 05:42 Resp 18 01/11/20 05:42 BP 126/68 01/11/20 05:42 Pulse Ox 100 01/11/20 05:42 Intake & Output 01/10/20 01/11/20 01/11/20 18:59 06:59 18:59 Intake Total 900 Balance 900 Intake: Oral 900 Other: # Voids 3 3 # Bowel Movements 1 0 Active Medications: Current Medications Acetaminophen (Tylenol) 650 mg PO Q4H PRN PRN Reason: Pain (Mild 1-3) Stop: 03/03/20 23:01 Last Admin: 01/06/20 14:11 Dose: 650 mg Al Hydrox/Mg Hydrox/Simethicone (Maalox) 30 ml PO Q6H PRN PRN Reason: Dyspepsia Stop: 03/03/20 23:01 Lipase/Protease/Amylase (Zenpep 5,000 U) 1 cap PO TIDWM [facility] Stop: 03/04/20 11:59 Last Admin: 01/11/20 08:32 Dose: 1 cap Dextrose (Glutose 40%) 18.75 gm PO PRN PRN PRN Reason: BS Below 70 if tolerate po Stop: 03/10/20 12:38 Diphenhydramine HCl (Benadryl) 25 mg PO BID [facility] Stop: 03/05/20 16:59 Last Admin: 01/11/20 08:32 Dose: 25 mg Glipizide (Glucotrol) 10 mg PO BIDAC [facility] Stop: 03/10/20 16:29 Last Admin: 01/11/20 06:46 Dose: 10 mg Glucagon (Glucagen) 1 mg IM PRN PRN PRN Reason: BS Below 70 if not tolerate po Stop: 03/10/20 12:38 Guaifenesin (Robitussin) 200 mg PO Q4HR PRN PRN Reason: Cough or Congestion Stop: 03/03/20 23:01 Haloperidol (Haldol) 5 mg PO BID [facility]; Protocol Stop: 03/05/20 16:59 Last Admin: 01/11/20 08:54 Dose: 5 mg Haloperidol Decanoate (Haldol Dec) 100 mg IM QMONTH [facility]; Protocol Stop: 03/10/20 12:59 Last Admin: 01/10/20 15:44 Dose: Not Given Insulin Human Lispro (Humalog Insulin Sliding Scale) 0 units SUBQ ACHS [facility]; Protocol Stop: 03/10/20 16:29 Last Admin: 01/11/20 06:46 Dose: 2 units Lorazepam (Ativan) 1 mg PO Q6HR PRN; Protocol PRN Reason: Anxiety Stop: 02/03/20 00:48 Last Admin: 01/10/20 08:39 Dose: 1 mg Magnesium Hydroxide (Milk Of Magnesia) 30 ml PO HS PRN PRN Reason: Constipation Multivitamins/Vitamin C (Theragran) 1 tab PO DAILY [facility] Stop: 03/04/20 08:59 Last Admin: 01/11/20 08:34 Dose: 1 tab Ondansetron HCl (Zofran Odt) 4 mg PO Q6H PRN PRN Reason: Nausea / Vomiting Stop: 03/03/20 23:03 Tamsulosin HCl (Flomax) 0.4 mg PO HS [facility] Stop: 03/04/20 20:59 Last Admin: 01/10/20 20:49 Dose: 0.4 mg Zolpidem Tartrate (Ambien) 5 mg PO HS PRN PRN Reason: Insomnia Stop: 03/04/20 00:48 Last Admin: 01/08/20 20:44 Dose: 5 mg General: demented, disheveled, appears older HEENT: NC/AT, PERRLA Neck: Supple, No JVD Lungs: CTAB Cardiovascular: RRR, Normal S1, Normal S2 Abdomen: soft, non-tender, positive bowel sound Extremities: excoriation Neurological: no change Internal Medicine Assmt/Plan - Assessment Assessment: ASSESSMENT AND PLAN: __h/o__ recent pneumonia, diabetes, chronic liver disease, schizoaffective disorder, hypertension. We will titrate the patient's antihypertensive medication. - Plan Plan: PLAN: . We will titrate the patient's antihypertensive medication. Continue on clonidine on as needed basis. If remains elevated. We will start on current antihypertensive medication. Continue on Flomax. We will compare with Psychiatry as far as alternative for lithium. start on glipizide rosaura rn Nutritional Asmnt/Malnutr-PDOC - Dietary Evaluation Malnutrition Findings (Please click <Entered> for more info): Nutritional Asmnt/Malnutrition Start: 01/06/20 13: 18 Text: Status: Complete Freq: Protocol: Document 01/06/20 13:18 DIANEFREDDIE (Rec: 01/06/20 13:25 DIANEFREDDIE [email or web address]) Nutritional Asmnt/Malnutrition Patient General Information Nutritional Screening Moderate Risk Diagnosis Psychosis Pertinent Medical Hx/Surgical Hx Diabetes, chronic liver disease, and schizoaffective disorder Subjective Information Pt is a 59-year-old male admitted on 01/02 d/t psychosis. Pt is eating an estimated 100% of meals Per Meal/Nutrition Activity Record . Dietary is currently providing an estimated 1593 kcals and 95 gm Pro (x2 days), per Pt PO intake this is providing an estimated 1593 kcals and 95gm Pro to meet 94% kcal and 100+% Pro needs. Visited pt. after lunch and introduced myself. Patient seemed confused and did not speak with me. Spoke with pt. nurse Kandis concerning high glucose values, she stated, she made MD aware and will talk further today when he comes in. Anthropometrics HT: 60 WT: 147 LB (66.82 kg) BMI: 19.94 (Normal) GI/ Skin Integrity GI: WNL, Soft, Non-Tender BM: 01/05 x1 I/O: 920/Not Noted Skin: WNL, Intact Ruben: 18 Diet Order: Cardiac, CCHO 60 gm Estimated Energy Needs: ( Chronic Liver Disease, CBW) 8950-8243 kcals (25-30 kcals/ kg) 80-100g Pro (1.2-1.5 g/kg) 7770-5722 ml (25-30 ml/kg) Current Diet Order/ Nutrition Support Cardiac, CCHO 60 gm Pertinent Medications Maalox, Zenpep 5,000 U, Glutose 40% (PRN), Glucagen ( PRN), Humalog, MOM (PRN), Theragran, Zodfran Odt (PRN), Flomax Pertinent Labs 01/05: POC Glucose (past 24 hrs ) 346, 244 01/03: Albumin 3.1, Alk Phos 210, BUN 6, Glucose 266 12/30: Glucose 327, Chloride 118 , Albumin 2.7, Alk Phos 218, Total Pro 5.8 12/28: POC Glucose 407, 439 Nutritional Hx/Data Height 1.83 m Height (Calculated Centimeters) 182.9 Current Weight (lbs) 66.678 kg Weight (Calculated Kilograms) 66.7 Weight (Calculated Grams) 02005.1 [place] Body Weight 178 % [place] Body Weight 83 Body Mass Index (BMI) 19.9 Weight Status Approriate GI Symptoms GI Symptoms None Last BM 01/05 Skin Integrity/Comment: Skin: WNL, Intact Ruben: 18 Current %PO Good (75-100%) Estimated Nutritional Goals BEE in Kcals: Using Current wt Calories/Kcals/Kg 25-30 Kcals Calculated 7330-5553 Protein: Using Current wt Protein g/k.2-1.5 Protein Calculated 80-100 Fluid: ml 0936-8035 Nutritional Problem 2. Problem Problem Increased protein needs Etiology r/t liver dysfunction Signs/Symptoms: aeb history of chronic liver disease 1. Problem Problem Altered nutrition related labs Etiology r/t endocrine dysfunction Signs/Symptoms: aeb POC Glucose (last 24 hrs.) 346, 244 Malnutrition Related to Morbid Obesity Malnutrition related to morbid obesity No Intervention/Recommendation Comments 1. Continue cardiac, CCHO 60 gm diet as tolerated. 2. Continue antihyperglycemic medications for glucose control per MD order. 3. Increased protein needs to 1.2-1.5 g/kg Expected Outcomes/Goals Expected Outcomes/Goals 1. PO intake to continue to meet >75% of estimated nutritional needs. 2. Monitor PO intake, wt, nutrition related labs, and skin integrity to trend WNL. 3. F/U as moderate risk in 3-5 days, 01/10-01/12
--- NOTE | 2020-01-11 17:12 | Progress Notes ---
DATE: 01/11/2020 SUBJECTIVE: A 59-year-old male, more interactive, still noted to be delusional, psychotic, argumentative, preoccupied, mumbling to self and poorly oriented. He does seem to be responding well to Haldol. I also ordered Haldol Decanoate. No overt side effects, no EPS. No escalation of behaviors. We will continue inpatient monitoring. Time was spent speaking with the patient. Nursing notes were reviewed. Labs were reviewed. Vitals also reviewed. PLAN: We will coordinate care with social media analyst regarding safe discharge plan. JOB# [id number]
[2020-01-12] MEDS: INSULIN LISPRO SLIDING SCALE 100 UNITS/ML UNIT SUBQ SCH ×4 (06:46→21:06)
[2020-01-12] MEDS: Multivitamin Tab PO SCH (08:25)
--- NOTE | 2020-01-12 12:59 | Internal Medicine Prog Note ---
Internal Medicine Subjective - Subjective Patient seen and examined:: with staff, chart reviewed Patient is:: awake, verbal, interactive, agitated, confused Per staff patient has:: no adverse event, no episodes of fall, combative, tolerating meds Internal Medicine Objective - Results Recent Labs: Laboratory Last Values POC Glucose 323 MG/DL (70 - 105) H 01/12/20 11:46 - Physical Exam Vitals and I&O: Vital Signs Temp 98.6 F 01/12/20 06:55 Pulse 66 01/12/20 06:55 Resp 20 01/12/20 06:55 BP 142/76 01/12/20 06:55 Pulse Ox 95 01/12/20 06:55 Intake & Output 01/11/20 01/12/20 01/12/20 18:59 06:59 18:59 Intake Total 1000 240 Balance 1000 240 Intake: Oral 1000 240 Other: # Voids 4 2 # Bowel Movements 1 0 Active Medications: Current Medications Acetaminophen (Tylenol) 650 mg PO Q4H PRN PRN Reason: Pain (Mild 1-3) Stop: 03/03/20 23:01 Last Admin: 01/06/20 14:11 Dose: 650 mg Al Hydrox/Mg Hydrox/Simethicone (Maalox) 30 ml PO Q6H PRN PRN Reason: Dyspepsia Stop: 03/03/20 23:01 Lipase/Protease/Amylase (Zenpep 5,000 U) 1 cap PO TIDWM [facility] Stop: 03/04/20 11:59 Last Admin: 01/12/20 08:24 Dose: 1 cap Dextrose (Glutose 40%) 18.75 gm PO PRN PRN PRN Reason: BS Below 70 if tolerate po Stop: 03/10/20 12:38 Diphenhydramine HCl (Benadryl) 25 mg PO BID [facility] Stop: 03/05/20 16:59 Last Admin: 01/12/20 08:24 Dose: 25 mg Glipizide (Glucotrol) 10 mg PO BIDAC [facility] Stop: 03/10/20 16:29 Last Admin: 01/12/20 06:46 Dose: 10 mg Glucagon (Glucagen) 1 mg IM PRN PRN PRN Reason: BS Below 70 if not tolerate po Stop: 03/10/20 12:38 Guaifenesin (Robitussin) 200 mg PO Q4HR PRN PRN Reason: Cough or Congestion Stop: 03/03/20 23:01 Haloperidol (Haldol) 5 mg PO BID [facility]; Protocol Stop: 03/05/20 16:59 Last Admin: 01/12/20 08:25 Dose: 5 mg Haloperidol Decanoate (Haldol Dec) 100 mg IM QMONTH [facility]; Protocol Stop: 03/10/20 12:59 Last Admin: 01/10/20 15:44 Dose: Not Given Insulin Human Lispro (Humalog Insulin Sliding Scale) 0 units SUBQ ACHS [facility]; Protocol Stop: 03/10/20 16:29 Last Admin: 01/12/20 11:35 Dose: 6 units Lorazepam (Ativan) 1 mg PO Q6HR PRN; Protocol PRN Reason: Anxiety Stop: 02/03/20 00:48 Last Admin: 01/12/20 08:25 Dose: 1 mg Magnesium Hydroxide (Milk Of Magnesia) 30 ml PO HS PRN PRN Reason: Constipation Multivitamins/Vitamin C (Theragran) 1 tab PO DAILY [facility] Stop: 03/04/20 08:59 Last Admin: 01/12/20 08:25 Dose: 1 tab Ondansetron HCl (Zofran Odt) 4 mg PO Q6H PRN PRN Reason: Nausea / Vomiting Stop: 03/03/20 23:03 Tamsulosin HCl (Flomax) 0.4 mg PO HS [facility] Stop: 03/04/20 20:59 Last Admin: 01/11/20 21:16 Dose: 0.4 mg Zolpidem Tartrate (Ambien) 5 mg PO HS PRN PRN Reason: Insomnia Stop: 03/04/20 00:48 Last Admin: 01/08/20 20:44 Dose: 5 mg General: demented, disheveled, appears older HEENT: NC/AT, PERRLA Neck: Supple, No JVD Lungs: CTAB Cardiovascular: RRR, Normal S1, Normal S2 Abdomen: soft, non-tender, positive bowel sound Extremities: excoriation Neurological: no change Internal Medicine Assmt/Plan - Assessment Assessment: ASSESSMENT AND PLAN: __h/o__ recent pneumonia, diabetes, chronic liver disease, schizoaffective disorder, hypertension. We will titrate the patient's antihypertensive medication. - Plan Plan: PLAN: . We will titrate the patient's antihypertensive medication. Continue on clonidine on as needed basis. If remains elevated. We will start on current antihypertensive medication. Continue on Flomax. We will compare with Psychiatry as far as alternative for lithium. start on glipizide rosaura rn Nutritional Asmnt/Malnutr-PDOC - Dietary Evaluation Malnutrition Findings (Please click <Entered> for more info): Nutritional Asmnt/Malnutrition Start: 01/06/20 13: 18 Text: Status: Complete Freq: Protocol: Document 01/06/20 13:18 DIANEFREDDIE (Rec: 01/06/20 13:25 DIANEFREDDIE [email or web address]) Nutritional Asmnt/Malnutrition Patient General Information Nutritional Screening Moderate Risk Diagnosis Psychosis Pertinent Medical Hx/Surgical Hx Diabetes, chronic liver disease, and schizoaffective disorder Subjective Information Pt is a 59-year-old male admitted on 01/02 d/t psychosis. Pt is eating an estimated 100% of meals Per Meal/Nutrition Activity Record . Dietary is currently providing an estimated 1593 kcals and 95 gm Pro (x2 days), per Pt PO intake this is providing an estimated 1593 kcals and 95gm Pro to meet 94% kcal and 100+% Pro needs. Visited pt. after lunch and introduced myself. Patient seemed confused and did not speak with me. Spoke with pt. nurse Kandis concerning high glucose values, she stated, she made MD aware and will talk further today when he comes in. Anthropometrics HT: 60 WT: 147 LB (66.82 kg) BMI: 19.94 (Normal) GI/ Skin Integrity GI: WNL, Soft, Non-Tender BM: 01/05 x1 I/O: 920/Not Noted Skin: WNL, Intact Ruben: 18 Diet Order: Cardiac, CCHO 60 gm Estimated Energy Needs: ( Chronic Liver Disease, CBW) 4036-2510 kcals (25-30 kcals/ kg) 80-100g Pro (1.2-1.5 g/kg) 4880-7200 ml (25-30 ml/kg) Current Diet Order/ Nutrition Support Cardiac, CCHO 60 gm Pertinent Medications Maalox, Zenpep 5,000 U, Glutose 40% (PRN), Glucagen ( PRN), Humalog, MOM (PRN), Theragran, Zodfran Odt (PRN), Flomax Pertinent Labs 01/05: POC Glucose (past 24 hrs ) 346, 244 01/03: Albumin 3.1, Alk Phos 210, BUN 6, Glucose 266 12/30: Glucose 327, Chloride 118 , Albumin 2.7, Alk Phos 218, Total Pro 5.8 12/28: POC Glucose 407, 439 Nutritional Hx/Data Height 1.83 m Height (Calculated Centimeters) 182.9 Current Weight (lbs) 66.678 kg Weight (Calculated Kilograms) 66.7 Weight (Calculated Grams) 49010.1 [place] Body Weight 178 % [place] Body Weight 83 Body Mass Index (BMI) 19.9 Weight Status Approriate GI Symptoms GI Symptoms None Last BM 01/05 Skin Integrity/Comment: Skin: WNL, Intact Ruben: 18 Current %PO Good (75-100%) Estimated Nutritional Goals BEE in Kcals: Using Current wt Calories/Kcals/Kg 25-30 Kcals Calculated 5898-3442 Protein: Using Current wt Protein g/k.2-1.5 Protein Calculated 80-100 Fluid: ml 2426-8825 Nutritional Problem 2. Problem Problem Increased protein needs Etiology r/t liver dysfunction Signs/Symptoms: aeb history of chronic liver disease 1. Problem Problem Altered nutrition related labs Etiology r/t endocrine dysfunction Signs/Symptoms: aeb POC Glucose (last 24 hrs.) 346, 244 Malnutrition Related to Morbid Obesity Malnutrition related to morbid obesity No Intervention/Recommendation Comments 1. Continue cardiac, CCHO 60 gm diet as tolerated. 2. Continue antihyperglycemic medications for glucose control per MD order. 3. Increased protein needs to 1.2-1.5 g/kg Expected Outcomes/Goals Expected Outcomes/Goals 1. PO intake to continue to meet >75% of estimated nutritional needs. 2. Monitor PO intake, wt, nutrition related labs, and skin integrity to trend WNL. 3. F/U as moderate risk in 3-5 days, 01/10-01/12
--- NOTE | 2020-01-12 23:54 | Progress Notes ---
DATE: 01/12/2020 A 59-year-old male, currently in the hospital, history of chronic schizophrenia. Calm at this time, still rambling, still nonsensical statements, bizarre ideations. The patient back and forth at times, at times restless. Tolerant of medications Haldol, long-acting injectable. Fair sleep, appetite and getting along fairly well with others ____ speaking with the patient, I thought he is pretty tangential, disorganized, impoverished in his thought processes. Medications were reviewed, any recent vitals were reviewed. No EPS, no akathisia. I also spoke with staff. I will continue inpatient monitoring. JOB# [id number]
[2020-01-13] MEDS: INSULIN LISPRO SLIDING SCALE 100 UNITS/ML UNIT SUBQ SCH ×4 (06:45→20:33)
[2020-01-13] MEDS: Multivitamin Tab PO SCH (08:49)
--- NOTE | 2020-01-13 11:53 | Progress Notes ---
DATE: 01/13/2020 SUBJECTIVE: The patient is currently in the hospital, mostly withdrawn, keeps to self, still responding to internal stimuli, mumbling to self. He is calmer, more pleasant, no longer is agitated. Better reality testing. The patient noting he is sleeping well, eating well, currently no EPS on exam. No akathisia. Per nursing notes, good sleep, eating fairly well, still mumbling to self, responding to internal stimuli. The patient coming from [facility]. Time was spent speaking with the patient and also nursing staff updated me on how he has been doing on the unit. Vitals were noted. Medications were reviewed. Any recent labs were reviewed. ASSESSMENT: The patient seems to be improving. PLAN: We will monitor inpatient. JOB# [id number]
--- NOTE | 2020-01-13 12:53 | Internal Medicine Prog Note ---
Internal Medicine Subjective - Subjective Patient seen and examined:: with staff, chart reviewed Patient is:: awake, verbal, interactive, agitated, confused Per staff patient has:: no adverse event, no episodes of fall, combative, tolerating meds Internal Medicine Objective - Results Recent Labs: Laboratory Last Values POC Glucose 301 MG/DL (70 - 105) H 01/13/20 12:01 - Physical Exam Vitals and I&O: Vital Signs Temp 97.3 F 01/13/20 05:32 Pulse 86 01/13/20 05:32 Resp 20 01/13/20 05:32 BP 130/74 01/13/20 05:32 Pulse Ox 95 01/13/20 05:32 Intake & Output 01/12/20 01/13/20 01/13/20 18:59 06:59 18:59 Intake Total 1200 360 Balance 1200 360 Intake: Oral 1080 360 Other 120 Other: # Voids 3 1 # Bowel Movements 1 0 Active Medications: Current Medications Acetaminophen (Tylenol) 650 mg PO Q4H PRN PRN Reason: Pain (Mild 1-3) Stop: 03/03/20 23:01 Last Admin: 01/06/20 14:11 Dose: 650 mg Al Hydrox/Mg Hydrox/Simethicone (Maalox) 30 ml PO Q6H PRN PRN Reason: Dyspepsia Stop: 03/03/20 23:01 Lipase/Protease/Amylase (Zenpep 5,000 U) 1 cap PO TIDWM [facility] Stop: 03/04/20 11:59 Last Admin: 01/13/20 08:48 Dose: 1 cap Dextrose (Glutose 40%) 18.75 gm PO PRN PRN PRN Reason: BS Below 70 if tolerate po Stop: 03/10/20 12:38 Diphenhydramine HCl (Benadryl) 25 mg PO BID [facility] Stop: 03/05/20 16:59 Last Admin: 01/13/20 08:49 Dose: 25 mg Glipizide (Glucotrol) 10 mg PO BIDAC [facility] Stop: 03/10/20 16:29 Last Admin: 01/13/20 06:44 Dose: 10 mg Glucagon (Glucagen) 1 mg IM PRN PRN PRN Reason: BS Below 70 if not tolerate po Stop: 03/10/20 12:38 Guaifenesin (Robitussin) 200 mg PO Q4HR PRN PRN Reason: Cough or Congestion Stop: 03/03/20 23:01 Haloperidol (Haldol) 5 mg PO BID [facility]; Protocol Stop: 03/05/20 16:59 Last Admin: 01/13/20 08:38 Dose: 5 mg Haloperidol Decanoate (Haldol Dec) 100 mg IM QMONTH [facility]; Protocol Stop: 03/10/20 12:59 Last Admin: 01/10/20 15:44 Dose: Not Given Insulin Human Lispro (Humalog Insulin Sliding Scale) 0 units SUBQ ACHS [facility]; Protocol Stop: 03/10/20 16:29 Last Admin: 01/13/20 06:45 Dose: 6 units Lorazepam (Ativan) 1 mg PO Q6HR PRN; Protocol PRN Reason: Anxiety Stop: 02/03/20 00:48 Last Admin: 01/12/20 16:26 Dose: 1 mg Magnesium Hydroxide (Milk Of Magnesia) 30 ml PO HS PRN PRN Reason: Constipation Multivitamins/Vitamin C (Theragran) 1 tab PO DAILY [facility] Stop: 03/04/20 08:59 Last Admin: 01/13/20 08:49 Dose: 1 tab Ondansetron HCl (Zofran Odt) 4 mg PO Q6H PRN PRN Reason: Nausea / Vomiting Stop: 03/03/20 23:03 Tamsulosin HCl (Flomax) 0.4 mg PO HS [facility] Stop: 03/04/20 20:59 Last Admin: 01/12/20 21:05 Dose: 0.4 mg Zolpidem Tartrate (Ambien) 5 mg PO HS PRN PRN Reason: Insomnia Stop: 03/04/20 00:48 Last Admin: 01/08/20 20:44 Dose: 5 mg General: demented, disheveled, appears older HEENT: NC/AT, PERRLA Neck: Supple, No JVD Lungs: CTAB Cardiovascular: RRR, Normal S1, Normal S2 Abdomen: soft, non-tender, positive bowel sound Extremities: excoriation Neurological: no change Internal Medicine Assmt/Plan - Assessment Assessment: ASSESSMENT AND PLAN: __h/o__ recent pneumonia, diabetes, chronic liver disease, schizoaffective disorder, hypertension. We will titrate the patient's antihypertensive medication. - Plan Plan: PLAN: . We will titrate the patient's antihypertensive medication. Continue on clonidine on as needed basis. If remains elevated. We will start on current antihypertensive medication. Continue on Flomax. We will compare with Psychiatry as far as alternative for lithium. start on glipizide dw rn will add lantus Nutritional Asmnt/Malnutr-PDOC - Dietary Evaluation Malnutrition Findings (Please click <Entered> for more info): Nutritional Asmnt/Malnutrition Start: 01/06/20 13: 18 Text: Status: Complete Freq: Protocol: Document 01/06/20 13:18 DIANEFREDDIE (Rec: 01/06/20 13:25 DIANEFREDDIE [email or web address]) Nutritional Asmnt/Malnutrition Patient General Information Nutritional Screening Moderate Risk Diagnosis Psychosis Pertinent Medical Hx/Surgical Hx Diabetes, chronic liver disease, and schizoaffective disorder Subjective Information Pt is a 59-year-old male admitted on 01/02 d/t psychosis. Pt is eating an estimated 100% of meals Per Meal/Nutrition Activity Record . Dietary is currently providing an estimated 1593 kcals and 95 gm Pro (x2 days), per Pt PO intake this is providing an estimated 1593 kcals and 95gm Pro to meet 94% kcal and 100+% Pro needs. Visited pt. after lunch and introduced myself. Patient seemed confused and did not speak with me. Spoke with pt. nurse Kandis concerning high glucose values, she stated, she made MD aware and will talk further today when he comes in. Anthropometrics HT: 60 WT: 147 LB (66.82 kg) BMI: 19.94 (Normal) GI/ Skin Integrity GI: WNL, Soft, Non-Tender BM: 01/05 x1 I/O: 920/Not Noted Skin: WNL, Intact Ruben: 18 Diet Order: Cardiac, CCHO 60 gm Estimated Energy Needs: ( Chronic Liver Disease, CBW) 1518-4181 kcals (25-30 kcals/ kg) 80-100g Pro (1.2-1.5 g/kg) 4258-3990 ml (25-30 ml/kg) Current Diet Order/ Nutrition Support Cardiac, CCHO 60 gm Pertinent Medications Maalox, Zenpep 5,000 U, Glutose 40% (PRN), Glucagen ( PRN), Humalog, MOM (PRN), Theragran, Zodfran Odt (PRN), Flomax Pertinent Labs 01/05: POC Glucose (past 24 hrs ) 346, 244 01/03: Albumin 3.1, Alk Phos 210, BUN 6, Glucose 266 12/30: Glucose 327, Chloride 118 , Albumin 2.7, Alk Phos 218, Total Pro 5.8 12/28: POC Glucose 407, 439 Nutritional Hx/Data Height 1.83 m Height (Calculated Centimeters) 182.9 Current Weight (lbs) 66.678 kg Weight (Calculated Kilograms) 66.7 Weight (Calculated Grams) 66238.1 [place] Body Weight 178 % [place] Body Weight 83 Body Mass Index (BMI) 19.9 Weight Status Approriate GI Symptoms GI Symptoms None Last BM 01/05 Skin Integrity/Comment: Skin: WNL, Intact Ruben: 18 Current %PO Good (75-100%) Estimated Nutritional Goals BEE in Kcals: Using Current wt Calories/Kcals/Kg 25-30 Kcals Calculated 3933-7048 Protein: Using Current wt Protein g/k.2-1.5 Protein Calculated 80-100 Fluid: ml 8828-1578 Nutritional Problem 2. Problem Problem Increased protein needs Etiology r/t liver dysfunction Signs/Symptoms: aeb history of chronic liver disease 1. Problem Problem Altered nutrition related labs Etiology r/t endocrine dysfunction Signs/Symptoms: aeb POC Glucose (last 24 hrs.) 346, 244 Malnutrition Related to Morbid Obesity Malnutrition related to morbid obesity No Intervention/Recommendation Comments 1. Continue cardiac, CCHO 60 gm diet as tolerated. 2. Continue antihyperglycemic medications for glucose control per MD order. 3. Increased protein needs to 1.2-1.5 g/kg Expected Outcomes/Goals Expected Outcomes/Goals 1. PO intake to continue to meet >75% of estimated nutritional needs. 2. Monitor PO intake, wt, nutrition related labs, and skin integrity to trend WNL. 3. F/U as moderate risk in 3-5 days, 01/10-01/12
[2020-01-13] MEDS: Insulin Glargine 100 units/ml 10ml Vial SUBQ SCH (20:32)
[2020-01-14] MEDS: INSULIN LISPRO SLIDING SCALE 100 UNITS/ML UNIT SUBQ SCH ×4 (06:47→20:48)
[2020-01-14] MEDS: Multivitamin Tab PO SCH (08:54)
--- NOTE | 2020-01-14 15:41 | Internal Medicine Prog Note ---
Internal Medicine Subjective - Subjective Patient seen and examined:: with staff, chart reviewed Patient is:: awake, verbal, interactive, agitated, confused Per staff patient has:: no adverse event, no episodes of fall, combative, tolerating meds Internal Medicine Objective - Results Recent Labs: Laboratory Last Values POC Glucose 282 MG/DL (70 - 105) H 01/14/20 11:57 - Physical Exam Vitals and I&O: Vital Signs Temp 98.6 F 01/14/20 14:00 Pulse 55 01/14/20 14:00 Resp 20 01/14/20 14:00 BP 122/60 01/14/20 14:00 Pulse Ox 98 01/14/20 14:00 Intake & Output 01/13/20 01/14/20 01/14/20 18:59 06:59 18:59 Intake Total 1200 360 Balance 1200 360 Intake: Oral 1200 360 Other: # Voids 1 # Bowel Movements 1 0 Active Medications: Current Medications Acetaminophen (Tylenol) 650 mg PO Q4H PRN PRN Reason: Pain (Mild 1-3) Stop: 03/03/20 23:01 Last Admin: 01/06/20 14:11 Dose: 650 mg Al Hydrox/Mg Hydrox/Simethicone (Maalox) 30 ml PO Q6H PRN PRN Reason: Dyspepsia Stop: 03/03/20 23:01 Lipase/Protease/Amylase (Zenpep 5,000 U) 1 cap PO TIDWM [facility] Stop: 03/04/20 11:59 Last Admin: 01/14/20 08:53 Dose: 1 cap Dextrose (Glutose 40%) 18.75 gm PO PRN PRN PRN Reason: BS Below 70 if tolerate po Stop: 03/10/20 12:38 Diphenhydramine HCl (Benadryl) 25 mg PO BID [facility] Stop: 03/05/20 16:59 Last Admin: 01/14/20 08:54 Dose: 25 mg Glipizide (Glucotrol) 10 mg PO BIDAC [facility] Stop: 03/14/20 06:38 Last Admin: 01/14/20 09:02 Dose: 10 mg Glucagon (Glucagen) 1 mg IM PRN PRN PRN Reason: BS Below 70 if not tolerate po Stop: 03/10/20 12:38 Guaifenesin (Robitussin) 200 mg PO Q4HR PRN PRN Reason: Cough or Congestion Stop: 03/03/20 23:01 Haloperidol (Haldol) 5 mg PO BID [facility]; Protocol Stop: 03/05/20 16:59 Last Admin: 01/14/20 08:54 Dose: 5 mg Haloperidol Decanoate (Haldol Dec) 100 mg IM QMONTH [facility]; Protocol Stop: 03/10/20 12:59 Last Admin: 01/10/20 15:44 Dose: Not Given Insulin Glargine (Lantus Insulin) 8 units SUBQ HS [facility] Stop: 03/13/20 20:59 Last Admin: 01/13/20 20:32 Dose: 8 units Insulin Human Lispro (Humalog Insulin Sliding Scale) 0 units SUBQ [facility]; Protocol Stop: 03/10/20 16:29 Last Admin: 01/14/20 06:47 Dose: Not Given Lorazepam (Ativan) 1 mg PO Q6HR PRN; Protocol PRN Reason: Anxiety Stop: 02/03/20 00:48 Last Admin: 01/12/20 16:26 Dose: 1 mg Magnesium Hydroxide (Milk Of Magnesia) 30 ml PO HS PRN PRN Reason: Constipation Multivitamins/Vitamin C (Theragran) 1 tab PO DAILY [facility] Stop: 03/04/20 08:59 Last Admin: 01/14/20 08:54 Dose: 1 tab Ondansetron HCl (Zofran Odt) 4 mg PO Q6H PRN PRN Reason: Nausea / Vomiting Stop: 03/03/20 23:03 Tamsulosin HCl (Flomax) 0.4 mg PO HS [facility] Stop: 03/04/20 20:59 Last Admin: 01/13/20 20:24 Dose: 0.4 mg Zolpidem Tartrate (Ambien) 5 mg PO HS PRN PRN Reason: Insomnia Stop: 03/04/20 00:48 Last Admin: 01/08/20 20:44 Dose: 5 mg General: demented, disheveled, appears older HEENT: NC/AT, PERRLA Neck: Supple, No JVD Lungs: CTAB Cardiovascular: RRR, Normal S1, Normal S2 Abdomen: soft, non-tender, positive bowel sound Extremities: excoriation Neurological: no change Internal Medicine Assmt/Plan - Assessment Assessment: ASSESSMENT AND PLAN: __h/o__ recent pneumonia, diabetes, chronic liver disease, schizoaffective disorder, hypertension. We will titrate the patient's antihypertensive medication. - Plan Plan: PLAN: . We will titrate the patient's antihypertensive medication. Continue on clonidine on as needed basis. If remains elevated. We will start on current antihypertensive medication. Continue on Flomax. We will compare with Psychiatry as far as alternative for lithium. start on glipizide dw rn will add lantus Nutritional Asmnt/Malnutr-PDOC - Dietary Evaluation Malnutrition Findings (Please click <Entered> for more info): Nutritional Asmnt/Malnutrition Start: 01/06/20 13: 18 Text: Status: Complete Freq: Protocol: Document 01/06/20 13:18 PB (Rec: 01/06/20 13:25 PB [email or web address]) Nutritional Asmnt/Malnutrition Patient General Information Nutritional Screening Moderate Risk Diagnosis Psychosis Pertinent Medical Hx/Surgical Hx Diabetes, chronic liver disease, and schizoaffective disorder Subjective Information Pt is a 59-year-old male admitted on 01/02 d/t psychosis. Pt is eating an estimated 100% of meals Per Meal/Nutrition Activity Record . Dietary is currently providing an estimated 1593 kcals and 95 gm Pro (x2 days), per Pt PO intake this is providing an estimated 1593 kcals and 95gm Pro to meet 94% kcal and 100+% Pro needs. Visited pt. after lunch and introduced myself. Patient seemed confused and did not speak with me. Spoke with pt. nurse Kandis concerning high glucose values, she stated, she made MD aware and will talk further today when he comes in. Anthropometrics HT: 60 WT: 147 LB (66.82 kg) BMI: 19.94 (Normal) GI/ Skin Integrity GI: WNL, Soft, Non-Tender BM: 01/05 x1 I/O: 920/Not Noted Skin: WNL, Intact Ruben: 18 Diet Order: Cardiac, CCHO 60 gm Estimated Energy Needs: ( Chronic Liver Disease, CBW) 3792-1104 kcals (25-30 kcals/ kg) 80-100g Pro (1.2-1.5 g/kg) 9199-4479 ml (25-30 ml/kg) Current Diet Order/ Nutrition Support Cardiac, CCHO 60 gm Pertinent Medications Maalox, Zenpep 5,000 U, Glutose 40% (PRN), Glucagen ( PRN), Humalog, MOM (PRN), Theragran, Zodfran Odt (PRN), Flomax Pertinent Labs 01/05: POC Glucose (past 24 hrs ) 346, 244 01/03: Albumin 3.1, Alk Phos 210, BUN 6, Glucose 266 12/30: Glucose 327, Chloride 118 , Albumin 2.7, Alk Phos 218, Total Pro 5.8 12/28: POC Glucose 407, 439 Nutritional Hx/Data Height 1.83 m Height (Calculated Centimeters) 182.9 Current Weight (lbs) 66.678 kg Weight (Calculated Kilograms) 66.7 Weight (Calculated Grams) 33855.1 [place] Body Weight 178 % [place] Body Weight 83 Body Mass Index (BMI) 19.9 Weight Status Approriate GI Symptoms GI Symptoms None Last BM 01/05 Skin Integrity/Comment: Skin: WNL, Intact Ruben: 18 Current %PO Good (75-100%) Estimated Nutritional Goals BEE in Kcals: Using Current wt Calories/Kcals/Kg 25-30 Kcals Calculated 7013-9597 Protein: Using Current wt Protein g/k.2-1.5 Protein Calculated 80-100 Fluid: ml 6515-4812 Nutritional Problem 2. Problem Problem Increased protein needs Etiology r/t liver dysfunction Signs/Symptoms: aeb history of chronic liver disease 1. Problem Problem Altered nutrition related labs Etiology r/t endocrine dysfunction Signs/Symptoms: aeb POC Glucose (last 24 hrs.) 346, 244 Malnutrition Related to Morbid Obesity Malnutrition related to morbid obesity No Intervention/Recommendation Comments 1. Continue cardiac, CCHO 60 gm diet as tolerated. 2. Continue antihyperglycemic medications for glucose control per MD order. 3. Increased protein needs to 1.2-1.5 g/kg Expected Outcomes/Goals Expected Outcomes/Goals 1. PO intake to continue to meet >75% of estimated nutritional needs. 2. Monitor PO intake, wt, nutrition related labs, and skin integrity to trend WNL. 3. F/U as moderate risk in 3-5 days, 01/10-01/12
[2020-01-14] MEDS: Insulin Glargine 100 units/ml 10ml Vial SUBQ SCH (20:48)
--- NOTE | 2020-01-15 00:26 | Progress Notes ---
DATE: 01/14/[address] Santizo. IDENTIFYING DATA: A 59-year-old male conserved from [facility], agitated, aggressive, needed to be restrained. Reconciliation reviewed, currently on Benadryl 25 mg p.o. b.i.d., Haldol 5 mg p.o. b.i.d. with Haldol deaconate given on 01/10/2020. Today on [id number] evaluation, the patient is reporting no side effects, no EPS. No tardive dyskinesia from the medications, reporting that his thoughts are becoming more coherent, at times easily impulsive and agitated, but redirectable after responding. Better reality testing. Internal stimuli improving. ASSESSMENT AND PLAN: Schizophrenia, stabilizing with the Haldol deaconate injection. We will continue monitoring primary psychiatrist's treatment plan and goals and continue solidifying coping skills and continue working with mental community case manager for safe disposition when bed available. JOB# [id number]
[2020-01-15] MEDS: INSULIN LISPRO SLIDING SCALE 100 UNITS/ML UNIT SUBQ SCH ×4 (06:57→20:36)
[2020-01-15] MEDS: Multivitamin Tab PO SCH (08:59)
--- NOTE | 2020-01-15 17:49 | Progress Notes ---
DATE: 01/15/[address] Santizo. SUBJECTIVE: Today on [id number] evaluation. Denies any EPS, tardive dyskinesia. The patient does report that ____ was experiencing. ASSESSMENT AND PLAN: Schizophrenia, stabilizing. We will continue monitoring as medication continues to reach steady state. JOB# [id number]
--- NOTE | 2020-01-15 17:49 | Internal Medicine Prog Note ---
Internal Medicine Subjective - Subjective Patient seen and examined:: with staff, chart reviewed Patient is:: awake, verbal, interactive, agitated, confused Per staff patient has:: no adverse event, no episodes of fall, combative, tolerating meds Internal Medicine Objective - Results Recent Labs: Laboratory Last Values POC Glucose 277 MG/DL (70 - 105) H 01/15/20 16:39 - Physical Exam Vitals and I&O: Vital Signs Temp 98.6 F 01/15/20 14:00 Pulse 60 01/15/20 14:00 Resp 20 01/15/20 14:00 BP 118/59 01/15/20 14:00 Pulse Ox 97 01/15/20 14:00 Intake & Output 01/14/20 01/15/20 01/15/20 18:59 06:59 18:59 Intake Total 900 360 Balance 900 360 Intake: Oral 900 360 Other: # Voids 3 1 # Bowel Movements 1 0 Active Medications: Current Medications Acetaminophen (Tylenol) 650 mg PO Q4H PRN PRN Reason: Pain (Mild 1-3) Stop: 03/03/20 23:01 Last Admin: 01/06/20 14:11 Dose: 650 mg Al Hydrox/Mg Hydrox/Simethicone (Maalox) 30 ml PO Q6H PRN PRN Reason: Dyspepsia Stop: 03/03/20 23:01 Lipase/Protease/Amylase (Zenpep 5,000 U) 1 cap PO TIDWM [facility] Stop: 03/04/20 11:59 Last Admin: 01/15/20 16:28 Dose: 1 cap Dextrose (Glutose 40%) 18.75 gm PO PRN PRN PRN Reason: BS Below 70 if tolerate po Stop: 03/10/20 12:38 Diphenhydramine HCl (Benadryl) 25 mg PO BID [facility] Stop: 03/05/20 16:59 Last Admin: 01/15/20 16:28 Dose: 25 mg Glipizide (Glucotrol) 10 mg PO BIDAC [facility] Stop: 03/14/20 06:38 Last Admin: 01/15/20 16:45 Dose: 10 mg Glucagon (Glucagen) 1 mg IM PRN PRN PRN Reason: BS Below 70 if not tolerate po Stop: 03/10/20 12:38 Guaifenesin (Robitussin) 200 mg PO Q4HR PRN PRN Reason: Cough or Congestion Stop: 03/03/20 23:01 Haloperidol (Haldol) 5 mg PO BID [facility]; Protocol Stop: 03/05/20 16:59 Last Admin: 01/15/20 16:28 Dose: 5 mg Haloperidol Decanoate (Haldol Dec) 100 mg IM QMONTH [facility]; Protocol Stop: 03/10/20 12:59 Last Admin: 01/10/20 15:44 Dose: Not Given Insulin Glargine (Lantus Insulin) 8 units SUBQ HS [facility] Stop: 03/13/20 20:59 Last Admin: 01/14/20 20:48 Dose: 8 units Insulin Human Lispro (Humalog Insulin Sliding Scale) 0 units SUBQ [facility]; Protocol Stop: 03/10/20 16:29 Last Admin: 01/15/20 16:46 Dose: 4 units Lorazepam (Ativan) 1 mg PO Q6HR PRN; Protocol PRN Reason: Anxiety Stop: 02/03/20 00:48 Last Admin: 01/12/20 16:26 Dose: 1 mg Magnesium Hydroxide (Milk Of Magnesia) 30 ml PO HS PRN PRN Reason: Constipation Multivitamins/Vitamin C (Theragran) 1 tab PO DAILY [facility] Stop: 03/04/20 08:59 Last Admin: 01/15/20 08:59 Dose: 1 tab Ondansetron HCl (Zofran Odt) 4 mg PO Q6H PRN PRN Reason: Nausea / Vomiting Stop: 03/03/20 23:03 Tamsulosin HCl (Flomax) 0.4 mg PO HS [facility] Stop: 03/04/20 20:59 Last Admin: 01/14/20 20:48 Dose: 0.4 mg Zolpidem Tartrate (Ambien) 5 mg PO HS PRN PRN Reason: Insomnia Stop: 03/04/20 00:48 Last Admin: 01/14/20 20:48 Dose: 5 mg General: demented, disheveled, appears older HEENT: NC/AT, PERRLA Neck: Supple, No JVD Lungs: CTAB Cardiovascular: RRR, Normal S1, Normal S2 Abdomen: soft, non-tender, positive bowel sound Extremities: excoriation Neurological: no change Internal Medicine Assmt/Plan - Assessment Assessment: ASSESSMENT AND PLAN: __h/o__ recent pneumonia, diabetes, chronic liver disease, schizoaffective disorder, hypertension. We will titrate the patient's antihypertensive medication. - Plan Plan: PLAN: . We will titrate the patient's antihypertensive medication. Continue on clonidine on as needed basis. If remains elevated. We will start on current antihypertensive medication. Continue on Flomax. start on glipizide dw rn will add lantus Nutritional Asmnt/Malnutr-PDOC - Dietary Evaluation Malnutrition Findings (Please click <Entered> for more info): Nutritional Asmnt/Malnutrition Start: 01/06/20 13: 18 Text: Status: Complete Freq: Protocol: Document 01/06/20 13:18 PB (Rec: 01/06/20 13:25 PB [email or web address]) Nutritional Asmnt/Malnutrition Patient General Information Nutritional Screening Moderate Risk Diagnosis Psychosis Pertinent Medical Hx/Surgical Hx Diabetes, chronic liver disease, and schizoaffective disorder Subjective Information Pt is a 59-year-old male admitted on 01/02 d/t psychosis. Pt is eating an estimated 100% of meals Per Meal/Nutrition Activity Record . Dietary is currently providing an estimated 1593 kcals and 95 gm Pro (x2 days), per Pt PO intake this is providing an estimated 1593 kcals and 95gm Pro to meet 94% kcal and 100+% Pro needs. Visited pt. after lunch and introduced myself. Patient seemed confused and did not speak with me. Spoke with pt. nurse Kandis concerning high glucose values, she stated, she made MD aware and will talk further today when he comes in. Anthropometrics HT: 60 WT: 147 LB (66.82 kg) BMI: 19.94 (Normal) GI/ Skin Integrity GI: WNL, Soft, Non-Tender BM: 01/05 x1 I/O: 920/Not Noted Skin: WNL, Intact Ruben: 18 Diet Order: Cardiac, CCHO 60 gm Estimated Energy Needs: ( Chronic Liver Disease, CBW) 3871-3407 kcals (25-30 kcals/ kg) 80-100g Pro (1.2-1.5 g/kg) 4952-0718 ml (25-30 ml/kg) Current Diet Order/ Nutrition Support Cardiac, CCHO 60 gm Pertinent Medications Maalox, Zenpep 5,000 U, Glutose 40% (PRN), Glucagen ( PRN), Humalog, MOM (PRN), Theragran, Zodfran Odt (PRN), Flomax Pertinent Labs 01/05: POC Glucose (past 24 hrs ) 346, 244 01/03: Albumin 3.1, Alk Phos 210, BUN 6, Glucose 266 12/30: Glucose 327, Chloride 118 , Albumin 2.7, Alk Phos 218, Total Pro 5.8 12/28: POC Glucose 407, 439 Nutritional Hx/Data Height 1.83 m Height (Calculated Centimeters) 182.9 Current Weight (lbs) 66.678 kg Weight (Calculated Kilograms) 66.7 Weight (Calculated Grams) 01673.1 [place] Body Weight 178 % [place] Body Weight 83 Body Mass Index (BMI) 19.9 Weight Status Approriate GI Symptoms GI Symptoms None Last BM 01/05 Skin Integrity/Comment: Skin: WNL, Intact Ruben: 18 Current %PO Good (75-100%) Estimated Nutritional Goals BEE in Kcals: Using Current wt Calories/Kcals/Kg 25-30 Kcals Calculated 9613-3398 Protein: Using Current wt Protein g/k.2-1.5 Protein Calculated 80-100 Fluid: ml 1845-4091 Nutritional Problem 2. Problem Problem Increased protein needs Etiology r/t liver dysfunction Signs/Symptoms: aeb history of chronic liver disease 1. Problem Problem Altered nutrition related labs Etiology r/t endocrine dysfunction Signs/Symptoms: aeb POC Glucose (last 24 hrs.) 346, 244 Malnutrition Related to Morbid Obesity Malnutrition related to morbid obesity No Intervention/Recommendation Comments 1. Continue cardiac, CCHO 60 gm diet as tolerated. 2. Continue antihyperglycemic medications for glucose control per MD order. 3. Increased protein needs to 1.2-1.5 g/kg Expected Outcomes/Goals Expected Outcomes/Goals 1. PO intake to continue to meet >75% of estimated nutritional needs. 2. Monitor PO intake, wt, nutrition related labs, and skin integrity to trend WNL. 3. F/U as moderate risk in 3-5 days, 01/10-01/12
[2020-01-15] MEDS: Insulin Glargine 100 units/ml 10ml Vial SUBQ SCH (20:35)
[2020-01-16] MEDS: INSULIN LISPRO SLIDING SCALE 100 UNITS/ML UNIT SUBQ SCH ×4 (06:49→20:38)
[2020-01-16] MEDS: Multivitamin Tab PO SCH (08:34)
--- NOTE | 2020-01-16 13:09 | Internal Medicine Prog Note ---
Internal Medicine Subjective - Subjective Patient seen and examined:: with staff, chart reviewed Patient is:: awake, verbal, interactive, agitated, confused Per staff patient has:: no adverse event, no episodes of fall, combative, tolerating meds Internal Medicine Objective - Results Recent Labs: Laboratory Last Values POC Glucose 249 MG/DL (70 - 105) H 01/16/20 06:23 - Physical Exam Vitals and I&O: Vital Signs Temp 98.6 F 01/16/20 06:05 Pulse 75 01/16/20 06:05 Resp 18 01/16/20 06:05 BP 122/64 01/16/20 06:05 Pulse Ox 98 01/16/20 06:05 Intake & Output 01/15/20 01/16/20 01/16/20 18:59 06:59 18:59 Intake Total 900 120 Balance 900 120 Intake: Oral 900 120 Other: # Voids 3 2 # Bowel Movements 1 0 Active Medications: Current Medications Acetaminophen (Tylenol) 650 mg PO Q4H PRN PRN Reason: Pain (Mild 1-3) Stop: 03/03/20 23:01 Last Admin: 01/06/20 14:11 Dose: 650 mg Al Hydrox/Mg Hydrox/Simethicone (Maalox) 30 ml PO Q6H PRN PRN Reason: Dyspepsia Stop: 03/03/20 23:01 Lipase/Protease/Amylase (Zenpep 5,000 U) 1 cap PO TIDWM [facility] Stop: 03/04/20 11:59 Last Admin: 01/16/20 08:34 Dose: 1 cap Dextrose (Glutose 40%) 18.75 gm PO PRN PRN PRN Reason: BS Below 70 if tolerate po Stop: 03/10/20 12:38 Diphenhydramine HCl (Benadryl) 25 mg PO BID [facility] Stop: 03/05/20 16:59 Last Admin: 01/16/20 08:34 Dose: 25 mg Glipizide (Glucotrol) 10 mg PO BIDAC [facility] Stop: 03/14/20 06:38 Last Admin: 01/16/20 06:49 Dose: 10 mg Glucagon (Glucagen) 1 mg IM PRN PRN PRN Reason: BS Below 70 if not tolerate po Stop: 03/10/20 12:38 Guaifenesin (Robitussin) 200 mg PO Q4HR PRN PRN Reason: Cough or Congestion Stop: 03/03/20 23:01 Haloperidol (Haldol) 5 mg PO BID [facility]; Protocol Stop: 03/05/20 16:59 Last Admin: 01/16/20 08:34 Dose: 5 mg Haloperidol Decanoate (Haldol Dec) 100 mg IM QMONTH [facility]; Protocol Stop: 03/10/20 12:59 Last Admin: 01/10/20 15:44 Dose: Not Given Insulin Human Lispro (Humalog Insulin Sliding Scale) 0 units SUBQ [facility]; Protocol Stop: 03/10/20 16:29 Last Admin: 01/16/20 06:49 Dose: 2 units Lorazepam (Ativan) 1 mg PO Q6HR PRN; Protocol PRN Reason: Anxiety Stop: 02/03/20 00:48 Last Admin: 01/12/20 16:26 Dose: 1 mg Magnesium Hydroxide (Milk Of Magnesia) 30 ml PO HS PRN PRN Reason: Constipation Multivitamins/Vitamin C (Theragran) 1 tab PO DAILY [facility] Stop: 03/04/20 08:59 Last Admin: 01/16/20 08:34 Dose: 1 tab Ondansetron HCl (Zofran Odt) 4 mg PO Q6H PRN PRN Reason: Nausea / Vomiting Stop: 03/03/20 23:03 Tamsulosin HCl (Flomax) 0.4 mg PO HS [facility] Stop: 03/04/20 20:59 Last Admin: 01/15/20 20:38 Dose: 0.4 mg Zolpidem Tartrate (Ambien) 5 mg PO HS PRN PRN Reason: Insomnia Stop: 03/04/20 00:48 Last Admin: 01/15/20 20:38 Dose: 5 mg General: demented, disheveled, appears older HEENT: NC/AT, PERRLA Neck: Supple, No JVD Lungs: CTAB Cardiovascular: RRR, Normal S1, Normal S2 Abdomen: soft, non-tender, positive bowel sound Extremities: excoriation Neurological: no change Internal Medicine Assmt/Plan - Assessment Assessment: ASSESSMENT AND PLAN: __h/o__ recent pneumonia, diabetes, chronic liver disease, schizoaffective disorder, hypertension. We will titrate the patient's antihypertensive medication. - Plan Plan: PLAN: . We will titrate the patient's antihypertensive medication. Continue on clonidine on as needed basis. If remains elevated. We will start on current antihypertensive medication. Continue on Flomax. start on glipizide rosaura rn will add lantus Nutritional Asmnt/Malnutr-PDOC - Dietary Evaluation Malnutrition Findings (Please click <Entered> for more info): Nutritional Asmnt/Malnutrition Start: 01/06/20 13: 18 Text: Status: Complete Freq: Protocol: Document 01/06/20 13:18 PB (Rec: 01/06/20 13:25 PB [email or web address]) Nutritional Asmnt/Malnutrition Patient General Information Nutritional Screening Moderate Risk Diagnosis Psychosis Pertinent Medical Hx/Surgical Hx Diabetes, chronic liver disease, and schizoaffective disorder Subjective Information Pt is a 59-year-old male admitted on 01/02 d/t psychosis. Pt is eating an estimated 100% of meals Per Meal/Nutrition Activity Record . Dietary is currently providing an estimated 1593 kcals and 95 gm Pro (x2 days), per Pt PO intake this is providing an estimated 1593 kcals and 95gm Pro to meet 94% kcal and 100+% Pro needs. Visited pt. after lunch and introduced myself. Patient seemed confused and did not speak with me. Spoke with pt. nurse Kandis concerning high glucose values, she stated, she made MD aware and will talk further today when he comes in. Anthropometrics HT: 60 WT: 147 LB (66.82 kg) BMI: 19.94 (Normal) GI/ Skin Integrity GI: WNL, Soft, Non-Tender BM: 01/05 x1 I/O: 920/Not Noted Skin: WNL, Intact Ruben: 18 Diet Order: Cardiac, CCHO 60 gm Estimated Energy Needs: ( Chronic Liver Disease, CBW) 6462-9221 kcals (25-30 kcals/ kg) 80-100g Pro (1.2-1.5 g/kg) 9607-2279 ml (25-30 ml/kg) Current Diet Order/ Nutrition Support Cardiac, CCHO 60 gm Pertinent Medications Maalox, Zenpep 5,000 U, Glutose 40% (PRN), Glucagen ( PRN), Humalog, MOM (PRN), Theragran, Zodfran Odt (PRN), Flomax Pertinent Labs 01/05: POC Glucose (past 24 hrs ) 346, 244 01/03: Albumin 3.1, Alk Phos 210, BUN 6, Glucose 266 12/30: Glucose 327, Chloride 118 , Albumin 2.7, Alk Phos 218, Total Pro 5.8 12/28: POC Glucose 407, 439 Nutritional Hx/Data Height 1.83 m Height (Calculated Centimeters) 182.9 Current Weight (lbs) 66.678 kg Weight (Calculated Kilograms) 66.7 Weight (Calculated Grams) 29891.1 [place] Body Weight 178 % [place] Body Weight 83 Body Mass Index (BMI) 19.9 Weight Status Approriate GI Symptoms GI Symptoms None Last BM 01/05 Skin Integrity/Comment: Skin: WNL, Intact Ruben: 18 Current %PO Good (75-100%) Estimated Nutritional Goals BEE in Kcals: Using Current wt Calories/Kcals/Kg 25-30 Kcals Calculated 9868-3795 Protein: Using Current wt Protein g/k.2-1.5 Protein Calculated 80-100 Fluid: ml 3620-1720 Nutritional Problem 2. Problem Problem Increased protein needs Etiology r/t liver dysfunction Signs/Symptoms: aeb history of chronic liver disease 1. Problem Problem Altered nutrition related labs Etiology r/t endocrine dysfunction Signs/Symptoms: aeb POC Glucose (last 24 hrs.) 346, 244 Malnutrition Related to Morbid Obesity Malnutrition related to morbid obesity No Intervention/Recommendation Comments 1. Continue cardiac, CCHO 60 gm diet as tolerated. 2. Continue antihyperglycemic medications for glucose control per MD order. 3. Increased protein needs to 1.2-1.5 g/kg Expected Outcomes/Goals Expected Outcomes/Goals 1. PO intake to continue to meet >75% of estimated nutritional needs. 2. Monitor PO intake, wt, nutrition related labs, and skin integrity to trend WNL. 3. F/U as moderate risk in 3-5 days, 01/10-01/12
[2020-01-16] MEDS ORDERED: Insulin Glargine 100 units/ml 10ml Vial SUBQ SCH (21:00)
--- NOTE | 2020-01-16 21:31 | Progress Notes ---
DATE: SUBJECTIVE: The patient is seen, chart reviewed, discussed with staff. The patient in the hospital noted to be with ongoing symptoms; still responding to internal stimuli, but less; seems to be approaching his baseline; generally more calm, cooperative, better orientation. Doing well with Haldol, Haldol Decanoate. I evaluated him for side effects. No akinesia, no EPS. Medications reviewed. Vitals reviewed. Discussed with nursing staff, who notes the patient has been generally calmer. The patient is happy with care. Sleeping well, eating well. PLAN: We will err on the side of caution, monitor for further 24 hours. Coordinate care with public health social worker regarding a safe discharge plan. JOB# [id number]
[2020-01-17] MEDS: INSULIN LISPRO SLIDING SCALE 100 UNITS/ML UNIT SUBQ SCH ×2 (06:48→11:37)
[2020-01-17] MEDS: Multivitamin Tab PO SCH (08:08)
--- NOTE | 2020-01-17 12:43 | Internal Medicine Prog Note ---
Internal Medicine Subjective - Subjective Patient seen and examined:: with staff, chart reviewed Patient is:: awake, verbal, interactive, agitated, confused Per staff patient has:: no adverse event, no episodes of fall, combative, tolerating meds Internal Medicine Objective - Results Recent Labs: Laboratory Last Values POC Glucose 198 MG/DL (70 - 105) H 01/17/20 06:18 - Physical Exam Vitals and I&O: Vital Signs Temp 98.5 F 01/17/20 06:03 Pulse 61 01/17/20 06:03 Resp 19 01/17/20 08:00 BP 158/78 01/17/20 06:03 Pulse Ox 100 01/17/20 06:03 Intake & Output 01/16/20 01/17/20 01/17/20 18:59 06:59 18:59 Intake Total 1000 480 Balance 1000 480 Intake: Oral 1000 480 Other: # Voids 4 1 # Bowel Movements 1 Active Medications: Current Medications Acetaminophen (Tylenol) 650 mg PO Q4H PRN PRN Reason: Pain (Mild 1-3) Stop: 03/03/20 23:01 Last Admin: 01/06/20 14:11 Dose: 650 mg Al Hydrox/Mg Hydrox/Simethicone (Maalox) 30 ml PO Q6H PRN PRN Reason: Dyspepsia Stop: 03/03/20 23:01 Lipase/Protease/Amylase (Zenpep 5,000 U) 1 cap PO TIDWM [facility] Stop: 03/04/20 11:59 Last Admin: 01/17/20 08:08 Dose: 1 cap Dextrose (Glutose 40%) 18.75 gm PO PRN PRN PRN Reason: BS Below 70 if tolerate po Stop: 03/10/20 12:38 Diphenhydramine HCl (Benadryl) 25 mg PO BID [facility] Stop: 03/05/20 16:59 Last Admin: 01/17/20 08:08 Dose: 25 mg Glipizide (Glucotrol) 10 mg PO BIDAC [facility] Stop: 03/14/20 06:38 Last Admin: 01/17/20 06:46 Dose: 10 mg Glucagon (Glucagen) 1 mg IM PRN PRN PRN Reason: BS Below 70 if not tolerate po Stop: 03/10/20 12:38 Guaifenesin (Robitussin) 200 mg PO Q4HR PRN PRN Reason: Cough or Congestion Stop: 03/03/20 23:01 Haloperidol (Haldol) 5 mg PO BID [facility]; Protocol Stop: 03/05/20 16:59 Last Admin: 01/17/20 08:08 Dose: 5 mg Haloperidol Decanoate (Haldol Dec) 100 mg IM QMONTH [facility]; Protocol Stop: 03/10/20 12:59 Last Admin: 01/10/20 15:44 Dose: Not Given Insulin Glargine (Lantus Insulin) 12 units SUBQ HS [facility] Stop: 03/16/20 20:59 Last Admin: 01/16/20 20:39 Dose: 12 units Insulin Human Lispro (Humalog Insulin Sliding Scale) 0 units SUBQ [facility]; Protocol Stop: 03/10/20 16:29 Last Admin: 01/17/20 11:37 Dose: 4 units Lorazepam (Ativan) 1 mg PO Q6HR PRN; Protocol PRN Reason: Anxiety Stop: 02/03/20 00:48 Last Admin: 01/12/20 16:26 Dose: 1 mg Magnesium Hydroxide (Milk Of Magnesia) 30 ml PO HS PRN PRN Reason: Constipation Multivitamins/Vitamin C (Theragran) 1 tab PO DAILY [facility] Stop: 03/04/20 08:59 Last Admin: 01/17/20 08:08 Dose: 1 tab Ondansetron HCl (Zofran Odt) 4 mg PO Q6H PRN PRN Reason: Nausea / Vomiting Stop: 03/03/20 23:03 Tamsulosin HCl (Flomax) 0.4 mg PO HS [facility] Stop: 03/04/20 20:59 Last Admin: 01/16/20 20:38 Dose: 0.4 mg Zolpidem Tartrate (Ambien) 5 mg PO HS PRN PRN Reason: Insomnia Stop: 03/04/20 00:48 Last Admin: 01/16/20 20:38 Dose: 5 mg General: demented, disheveled, appears older HEENT: NC/AT, PERRLA Neck: Supple, No JVD Lungs: CTAB Cardiovascular: RRR, Normal S1, Normal S2 Abdomen: soft, non-tender, positive bowel sound Extremities: excoriation Neurological: no change Internal Medicine Assmt/Plan - Assessment Assessment: ASSESSMENT AND PLAN: __h/o__ recent pneumonia, diabetes, chronic liver disease, schizoaffective disorder, hypertension. We will titrate the patient's antihypertensive medication. - Plan Plan: PLAN: . We will titrate the patient's antihypertensive medication. Continue on clonidine on as needed basis. If remains elevated. We will start on current antihypertensive medication. Continue on Flomax. start on glipizide dw rn will add lantus Nutritional Asmnt/Malnutr-PDOC - Dietary Evaluation Malnutrition Findings (Please click <Entered> for more info): Nutritional Asmnt/Malnutrition Start: 01/06/20 13: 18 Text: Status: Complete Freq: Protocol: Document 01/06/20 13:18 PB (Rec: 01/06/20 13:25 PB [email or web address]) Nutritional Asmnt/Malnutrition Patient General Information Nutritional Screening Moderate Risk Diagnosis Psychosis Pertinent Medical Hx/Surgical Hx Diabetes, chronic liver disease, and schizoaffective disorder Subjective Information Pt is a 59-year-old male admitted on 01/02 d/t psychosis. Pt is eating an estimated 100% of meals Per Meal/Nutrition Activity Record . Dietary is currently providing an estimated 1593 kcals and 95 gm Pro (x2 days), per Pt PO intake this is providing an estimated 1593 kcals and 95gm Pro to meet 94% kcal and 100+% Pro needs. Visited pt. after lunch and introduced myself. Patient seemed confused and did not speak with me. Spoke with pt. nurse Kandis concerning high glucose values, she stated, she made MD aware and will talk further today when he comes in. Anthropometrics HT: 60 WT: 147 LB (66.82 kg) BMI: 19.94 (Normal) GI/ Skin Integrity GI: WNL, Soft, Non-Tender BM: 01/05 x1 I/O: 920/Not Noted Skin: WNL, Intact Ruben: 18 Diet Order: Cardiac, CCHO 60 gm Estimated Energy Needs: ( Chronic Liver Disease, CBW) 9196-1255 kcals (25-30 kcals/ kg) 80-100g Pro (1.2-1.5 g/kg) 0920-0052 ml (25-30 ml/kg) Current Diet Order/ Nutrition Support Cardiac, CCHO 60 gm Pertinent Medications Maalox, Zenpep 5,000 U, Glutose 40% (PRN), Glucagen ( PRN), Humalog, MOM (PRN), Theragran, Zodfran Odt (PRN), Flomax Pertinent Labs 01/05: POC Glucose (past 24 hrs ) 346, 244 01/03: Albumin 3.1, Alk Phos 210, BUN 6, Glucose 266 12/30: Glucose 327, Chloride 118 , Albumin 2.7, Alk Phos 218, Total Pro 5.8 12/28: POC Glucose 407, 439 Nutritional Hx/Data Height 1.83 m Height (Calculated Centimeters) 182.9 Current Weight (lbs) 66.678 kg Weight (Calculated Kilograms) 66.7 Weight (Calculated Grams) 53012.1 [place] Body Weight 178 % [place] Body Weight 83 Body Mass Index (BMI) 19.9 Weight Status Approriate GI Symptoms GI Symptoms None Last BM 01/05 Skin Integrity/Comment: Skin: WNL, Intact Ruben: 18 Current %PO Good (75-100%) Estimated Nutritional Goals BEE in Kcals: Using Current wt Calories/Kcals/Kg 25-30 Kcals Calculated 4091-4481 Protein: Using Current wt Protein g/k.2-1.5 Protein Calculated 80-100 Fluid: ml 0368-4307 Nutritional Problem 2. Problem Problem Increased protein needs Etiology r/t liver dysfunction Signs/Symptoms: aeb history of chronic liver disease 1. Problem Problem Altered nutrition related labs Etiology r/t endocrine dysfunction Signs/Symptoms: aeb POC Glucose (last 24 hrs.) 346, 244 Malnutrition Related to Morbid Obesity Malnutrition related to morbid obesity No Intervention/Recommendation Comments 1. Continue cardiac, CCHO 60 gm diet as tolerated. 2. Continue antihyperglycemic medications for glucose control per MD order. 3. Increased protein needs to 1.2-1.5 g/kg Expected Outcomes/Goals Expected Outcomes/Goals 1. PO intake to continue to meet >75% of estimated nutritional needs. 2. Monitor PO intake, wt, nutrition related labs, and skin integrity to trend WNL. 3. F/U as moderate risk in 3-5 days, 01/10-01/12
--- NOTE | 2020-01-17 14:40 | Discharge Summary ---
DATE OF DISCHARGE: 01/17/2020 HISTORY OF PRESENT ILLNESS: A 59-year-old male with chronic schizophrenia, coming in from [facility], referred by Dr. Santizo, agitated, combative, gravely disabled, extremely confused, disorganized. When he got to the hospital, he remained disorganized, confused in a Anu chair, did not know what was going on, really unruly. PAST MEDICAL HISTORY: Admissions in the past, history of schizophrenia. SOCIAL HISTORY: Needing a high level of nursing care. PROVISIONAL DIAGNOSIS: Schizophrenia. MEDICAL: Please see full H and P. HOSPITAL COURSE: After initial assessment, the patient was started really on dosing with Haldol. Haldol was adjusted, titrated, transition to Haldol Decanoate. Over the course of treatment, mood improved, affect improved, generally calmer. As the hospitalization course progressed, he was more linear, more engaged, more oriented, better reality testing future and goal directed in fact, no agitation, no escalation of behavior. Tolerant of Haldol. No akathisia, no EPS. Staff noting improvement. CONDITION UPON DISCHARGE: Improved, better ADLs, more engaged. No SI, no HI, no psychosis, calm, generally cooperative accepting of treatments. DISCHARGE DIAGNOSIS: Schizophrenia. PROGNOSIS: The patient follows up with outpatient mental health services and remains compliant with treatment. Prognosis will improve, otherwise guarded. [facility]# [id number]
== END 2020-01-17 14:45 | DRG 885 ==
LOC: GERO 23:00
PROVIDERS: ADMIT Psychiatry & Neurology Psychiatry; ATTEND Psychiatry & Neurology Psychiatry
DX: F20.9 Schizophrenia, unspecified (principal); J18.9 Pneumonia, unspecified organism; E11.9 Type 2 diabetes mellitus without complications; K76.9 Liver disease, unspecified; Z87.891 Personal history of nicotine dependence; Z79.899 Other long term (current) drug therapy
CPT/HCPCS: 82948-90; 83036-90; J1200; J1630; J1631; J1815; J2060; Z7610